=== PATIENT | female | born 1960 | race Caucasian/White ===

== ENCOUNTER → 2016-10-15 | Outpatient (CLI) | payer MEDICARE, OTHER ==
--- NOTE | 2016-10-15 11:17 | US ---
EXAMINATION TYPE: US carotid duplex BILAT DATE OF EXAM: 10/15/2016 10:48 AM COMPARISON: NONE CLINICAL HISTORY: US. Vertigo EXAM MEASUREMENTS: RIGHT: Peak Systolic Velocity (PSV) cm/sec ----- Right CCA: 91.7 ----- Right ICA: 96.8 ----- Right ECA: 147.1 ICA/CCA ratio: 1.1 RIGHT: End Diastole cm/sec ----- Right CCA: 37.4 ----- Right ICA: 38.7 ----- Right ECA: 30.8 LEFT: Peak Systolic Velocity (PSV) cm/sec ----- Left CCA: 85.0 ----- Left ICA: 133.5 ----- Left ECA: 162.9 ICA/CCA ratio: 1.6 LEFT: End Diastole cm/sec ----- Left CCA: 39.6 ----- Left ICA: 52.7 ----- Left ECA: 54.4 VERTEBRALS (direction of flow): Right Vertebral: Antegrade Left Vertebral: Antegrade IMPRESSION: Mild plaque noted bilateral bifurcations. Slightly increased velocities left ICA. Increa sed velocities bilateral ECA Criteria for Assigning % of Stenosis / Diameter reduction (Estimation based on the indirect measurements of the internal carotid artery velocities (ICA PSV). 1. Normal (no stenosis)=ICA PSV < 125 cm/s: ratio < 2.0: ICA EDV<40 cm/s. 2. Less than 50% stenosis=ICA PSV < 125 cm/s: ratio < 2.0: ICA EDV<40 cm/s. 3. 50 to 69% stenosis=ICA PSV of 125 to 230 cm/s: ration 2.0 ? 4.0: ICA EDV 40-100 cm/s. 4. Greater than 70% stenosis to near occlusion= ICA PSV > 230 cm/s: ratio > 4.0: ICA EDV > 100 cm/s. 5. Near occlusion= ICA PSV velocities may be low or undetectable: variable ratio and ICA EDV. 6. Total occlusion=unable to detect flow.
[2016-10-15 11:19] LABS: Basophils # (A) 0.1 k/uL (0-0.2); Basophils % (A) 1 %; CH 29.7; CHCM 32.7; Eosinophils # (A) 0.2 k/uL (0-0.7); Eosinophils % (A) 2 %; HCT 45.5 % (34.0-46.0); HGB 14.5 gm/dL (11.4-16.0); Luc # (Auto) 0.11; Luc % (Auto) 1; Lymphocytes % (A) 23 %; MCH 29.2 pg (25.0-35.0); MCV 91.2 fL (80.0-100.0); Mean Platelet Volume 7.7; Monocytes # (A) 0.4 k/uL (0-1.0); Monocytes % (A) 5 %; Neutrophils # (A) 5.8 k/uL (1.3-7.7); Neutrophils % (A) 67 %; RBC 4.99 m/uL (3.80-5.40); RDW 13.1 % (11.5-15.5); WBC 8.7 k/uL (3.8-10.6); WBC (Perox) 8.67
[2016-10-15 11:41] LABS: ALT 25 U/L (9-52); AST 16 U/L (14-36); Alkaline Phosphatase 71 U/L (38-126); Anion Gap 10 mmol/L; Blood Urea Nitrogen 14 mg/dL (7-17); Calcium 10.3 mg/dL (8.4-10.2); Carbon Dioxide 29 mmol/L (22-30); Chloride 104 mmol/L (98-107); Glucose 101 mg/dL (74-99); HDL Cholesterol 71 mg/dL (40-60); Non-African American GFR(MDRD) >60 (>60 ml/min/1.73 sqM); Sodium 143 mmol/L (137-145); Total Bilirubin 0.9 mg/dL (0.2-1.3); Total Protein 7.1 g/dL (6.3-8.2); Triglycerides 83 mg/dL (<150)
[2016-10-15 11:57] LABS: Cholesterol 466 mg/dL (<200)
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
[2016-10-15 12:25] LABS: Vitamin B12 958 pg/mL (239-931)
[2016-10-15 13:19] LABS: Hepatitis C Virus IgG Index 0.01
[2016-10-15 13:41] LABS: Hepatitis C Virus IgG Ab Negative (Negative)
== END | disposition home or self-care (01) ==
LOC: RADUSWWP 10:13
PROVIDERS: ATTEND Psychiatry & Neurology Neurology
DX: G35 Multiple sclerosis (principal); R90.82 White matter disease, unspecified; G37.9 Demyelinating disease of central nervous system, unspecified; I65.23 Occlusion and stenosis of bilateral carotid arteries
CPT/HCPCS: 86803; 84439; 84481; 80061; 80053; 82607; 84443; 85025; 83090; 82306; 93880; 70460; 36415; Q9967

== ENCOUNTER → 2017-05-09 | Outpatient (CLI) | payer MEDICARE, OTHER ==
--- NOTE | 2017-05-09 10:31 | CT ---
EXAMINATION TYPE: CT brain wo/w con DATE OF EXAM: 05/09/2017 COMPARISON: History of multiple sclerosis with new onset leg weakness. HISTORY: Patient complains of history of MS with new onset left leg weakness. CT DLP: 1566.4 mGycm Automated Exposure Control for Dose Reduction was Utilized. TECHNIQUE: CT scan of the head is performed with IV contrast.,CT scan of the head is performed withou t and with without and with IV Contrast, patient injected with 100 mL of Omnipaque 300. FINDINGS: Noncontrast images show no acute intracranial hemorrhage or midline shift. Focal areas of hypoattenuation are seen within the periventricular and subcortical white matter, specifically radia ting from the periventricular white matter through the hobson radiata and a perpendicular fashion mos t notably within the left frontal lobe. No evidence of abnormal enhancement. The ventricles and sulci are within normal limits in size. Postcontrast images show no suspicious enh ancing intraparenchymal mass. The frontal sinuses are aplastic. The globes are intact and the remaini ng visualized sinuses are clear. Again noted is leftward nasal septal deviation, partially visualized . IMPRESSION: Stable nonenhancing periventricular and deep white matter changes compatible with the pro vided history of multiple sclerosis. MR could be performed for further evaluation of posterior fossa, cervical or brainstem lesions as well as optic neuritis if clinically indicated.
== END | disposition home or self-care (01) ==
LOC: RADCTMAIN 09:29
PROVIDERS: ATTEND Psychiatry & Neurology Neurology
DX: G35 Multiple sclerosis (principal); Z88.0 Allergy status to penicillin; Z88.6 Allergy status to analgesic agent
CPT/HCPCS: 70470; Q9967

== ENCOUNTER → 2017-06-22 | Outpatient (CLI) | payer MEDICARE, OTHER ==
[2017-06-22 11:48] LABS: Basophils # (A) 0.1 k/uL (0-0.2); Basophils % (A) 1 %; CH 29.2; CHCM 32.2; Eosinophils # (A) 0.2 k/uL (0-0.7); Eosinophils % (A) 2 %; HCT 46.3 % (34.0-46.0); HDW 2.11; HGB 15.5 gm/dL (11.4-16.0); Luc # (Auto) 0.13; Luc % (Auto) 2; Lymphocytes # (A) 2.6 k/uL (1.0-4.8); Lymphocytes % (A) 32 %; MCH 30.5 pg (25.0-35.0); MCHC 33.5 g/dL (31.0-37.0); MCV 91.2 fL (80.0-100.0); Mean Platelet Volume 7.2; Monocytes # (A) 0.4 k/uL (0-1.0); Monocytes % (A) 5 %; Neutrophils # (A) 4.8 k/uL (1.3-7.7); Neutrophils % (A) 59 %; RBC 5.07 m/uL (3.80-5.40); RDW 13.2 % (11.5-15.5); WBC 8.1 k/uL (3.8-10.6); WBC (Perox) 8.14
[2017-06-22 12:14] LABS: ALT 30 U/L (9-52); AST 16 U/L (14-36); Alkaline Phosphatase 85 U/L (38-126); Anion Gap 8 mmol/L; Blood Urea Nitrogen 18 mg/dL (7-17); Calcium 10.3 mg/dL (8.4-10.2); Carbon Dioxide 28 mmol/L (22-30); Chloride 105 mmol/L (98-107); Glucose 102 mg/dL (74-99); Non-African American GFR(MDRD) >60 (>60 ml/min/1.73 sqM); Potassium 4.1 mmol/L (3.5-5.1); Sodium 141 mmol/L (137-145); Total Bilirubin 0.8 mg/dL (0.2-1.3); Total Protein 7.1 g/dL (6.3-8.2)
[2017-06-22 12:56] LABS: Vitamin B12 >1000 pg/mL (239-931)
== END | disposition home or self-care (01) ==
LOC: LABWHC1 11:10
PROVIDERS: ATTEND Nurse Practitioner Acute Care
DX: G35 Multiple sclerosis (principal); E55.9 Vitamin D deficiency, unspecified
CPT/HCPCS: 36415; 80053; 82306; 82607; 84439; 84443; 84481; 85025

== ENCOUNTER → 2017-07-25 | Outpatient (CLI) | payer MEDICARE, OTHER ==
[2017-07-25 13:31] LABS: Prothrombin Time 10.3 sec (9.0-12.0)
== END | disposition home or self-care (01) ==
LOC: LABWHC1 12:28
PROVIDERS: ATTEND Nurse Practitioner Acute Care
DX: Z01.812 Encounter for preprocedural laboratory examination (principal)
CPT/HCPCS: 36415; 85610

== ENCOUNTER → 2017-12-01 | Outpatient (CLI) | payer MEDICARE, OTHER ==
--- NOTE | 2017-12-01 13:35 | CT ---
EXAMINATION TYPE: CT lumbar spine wo con DATE OF EXAM: 12/01/2017 COMPARISON: 08/03/2013 HISTORY: Lumbago Unenhanced CT of the lumbar spine was performed. Bone and soft tissue window settings are submitted as well as coronal and sagittal reconstructions. L1-L2: Normal disc space height. No disc herniation protrusion or central stenosis. No facet joint arthropathy. No evidence for foraminal encroachment. L2-L3: Normal disc space height. No disc herniation protrusion or central stenosis. No facet joint arthropathy. No evidence for foraminal encroachment. L3-L4: Mild degenerative disc space narrowing. Circumferential disc bulge with mild effacement ventra l thecal sac. No herniation protrusion or central stenosis. Mild facet joint arthropathy. Foramina ar e patent bilaterally. L4-L5: Mild degenerative disc space narrowing. Broad-based disc bulge with greater focal component pa racentrally and to the left at the level of the neural foramen right cannot exclude a small protrusio n. Mild left foraminal encroachment noted. It is difficult to exclude bilateral lateral recess stenos is. No definite central stenosis at this time. L5-S1: Mild to moderate degenerative disc space narrowing. Moderate Broad-based disc bulge. Mild eff acement ventral thecal sac. Left lateral recess stenosis difficult to exclude. Foramina are patent. No paraspinal masses are identified. Lumbar segments are free if fracture. Stimulator device is note d with its distal tip off the [id number]. Stimulator enters at the L3-4 level. IMPRESSION: 1. Multilevel degenerative disc space narrowing with disc bulging and possible lateral recess stenosi s as outlined above.
== END | disposition home or self-care (01) ==
LOC: RADCTMAIN 12:47
PROVIDERS: ATTEND Psychiatry & Neurology Neurology
DX: M48.07 Spinal stenosis, lumbosacral region (principal); M51.27 Other intervertebral disc displacement, lumbosacral region; M46.86 Other specified inflammatory spondylopathies, lumbar region
CPT/HCPCS: 72131

== ENCOUNTER → 2018-11-07 | Outpatient (CLI) | payer MEDICARE, OTHER ==
[2018-11-07 17:00] LABS: HCT 46.2 % (34.0-46.0); HGB 14.9 gm/dL (11.4-16.0); MCH 28.8 pg (25.0-35.0); MCHC 32.1 g/dL (31.0-37.0); MCV 89.7 fL (80.0-100.0); Mean Platelet Volume 6.9; Platelet Count 290 k/uL (150-450); RBC 5.16 m/uL (3.80-5.40); RDW 14.6 % (11.5-15.5); WBC 9.3 k/uL (3.8-10.6)
[2018-11-07 17:37] LABS: Lymphocytes # (M) 6.42 k/uL (1.0-4.8); Neutrophils # (M) 2.51 k/uL (1.3-7.7); Neutrophils % (M) 27 %
[2018-11-07 17:38] LABS: Eosinophils # (M) 0.28 k/uL (0-0.7); Monocytes # (M) 0.09 k/uL (0-1.0); Nucleated Red Blood Cells 0 /100 WBC (0-0); Total Cells Counted 100
[2018-11-08 00:59] LABS: Albumin 4.6 g/dL (3.80-4.90); Albumin/Globulin Ratio 2.42 (1.60-3.17); Anion Gap 8.9 mmol/L (4.00-12.00); Calcium 9.7 mg/dL (8.7-10.3); Carbon Dioxide 27.1 mmol/L (21.6-31.8); Globulin 1.9 g/dL (1.6-3.3); Potassium 4.6 mmol/L (3.5-5.5); Total Bilirubin 0.6 mg/dL (0.3-1.2); Total Protein 6.5 g/dL (6.2-8.2)
== END | disposition home or self-care (01) ==
LOC: LABWHC1 15:42
PROVIDERS: ATTEND Nurse Practitioner Acute Care
DX: G35 Multiple sclerosis (principal); E55.9 Vitamin D deficiency, unspecified
CPT/HCPCS: 36415; 80053; 82306; 85025

== ENCOUNTER → 2019-08-17 | Outpatient (CLI) | payer MEDICARE, OTHER ==
--- NOTE | 2019-08-17 13:28 | CT ---
EXAMINATION TYPE: CT lumbar spine wo con DATE OF EXAM: 08/17/2019 COMPARISON: 12/01/2017 HISTORY: Low back pain. Left leg weakness x [address] DLP: 527.[address] of the lumbar spine was performed. Bone and soft tissue window settings are submitted as well as coronal and sagittal reconstructions. L1-L2: Normal disc space height. No disc herniation protrusion or central stenosis. No facet joint arthropathy. No evidence for foraminal encroachment. L2-L3: Normal disc space height. No disc herniation protrusion or central stenosis. No facet joint arthropathy. No evidence for foraminal encroachment. L3-L4: Mild degenerative disc space narrowing. Circumferential disc bulge with mild effacement ventra l thecal sac. No herniation protrusion or central stenosis. Mild facet joint arthropathy. Foramina ar e patent bilaterally. L4-L5: Mild disc desiccation noted. Circumferential disc bulge noted greatest posteriorly moderate in degree. Previously noted focal component on the left is not reproduced at this time. There is suspec all bilateral lateral recess stenosis. Mild bilateral foraminal encroachment. L5-S1: Mild degenerative disc space narrowing. Circumferential disc bulge with mild effacement ventra l thecal sac. No herniation protrusion or central stenosis. Mild facet joint arthropathy. Foramina ar e patent bilaterally. No paraspinal masses are identified. Lumbar segments are free if fracture. IMPRESSION: 1. Degenerative disc disease as discussed without significant interval change. Posterior disc bulging greatest at L4-5 where there is bilateral lateral recess stenosis and foraminal encroachment.
[2019-08-17 14:38] LABS: Basophils # (A) 0.1 k/uL (0-0.2); Basophils % (A) 1 %; Eosinophils # (A) 0.4 k/uL (0-0.7); Eosinophils % (A) 4 %; HCT 44.9 % (34.0-46.0); Lymphocytes # (A) 4.5 k/uL (1.0-4.8); Lymphocytes % (A) 42 %; MCH 29.8 pg (25.0-35.0); MCHC 33.4 g/dL (31.0-37.0); MCV 89.4 fL (80.0-100.0); Mean Platelet Volume 6.3; Monocytes # (A) 0.5 k/uL (0-1.0); Monocytes % (A) 5 %; Neutrophils # (A) 4.9 k/uL (1.3-7.7); Neutrophils % (A) 46 %; Platelet Count 273 k/uL (150-450); RBC 5.02 m/uL (3.80-5.40); RDW 14.5 % (11.5-15.5); WBC 10.7 k/uL (3.8-10.6)
[2019-08-17 14:50] LABS: ALT 15 U/L (9-52); AST 17 U/L (14-36); African American GFR (CKD) >90 (>60 ml/min/1.73 sqM); Albumin 4.5 g/dL (3.5-5.0); Alkaline Phosphatase 73 U/L (38-126); Anion Gap 5 mmol/L; Blood Urea Nitrogen 21 mg/dL (7-17); Calcium 9.8 mg/dL (8.4-10.2); Carbon Dioxide 29 mmol/L (22-30); Chloride 108 mmol/L (98-107); Glucose 98 mg/dL (74-99); HDL Cholesterol 76 mg/dL (40-60); Non-African American GFR(CKD) 84 (>60 ml/min/1.73 sqM); Potassium 4.3 mmol/L (3.5-5.1); Sodium 142 mmol/L (137-145); Total Bilirubin 0.6 mg/dL (0.2-1.3); Total Protein 7.2 g/dL (6.3-8.2); Triglycerides 85 mg/dL (<150)
[2019-08-17 14:56] LABS: LDL Cholesterol,Calculated 378 mg/dL (0-99)
[2019-08-17 15:03] LABS: Cholesterol 471 mg/dL (<200)
--- NOTE | 2019-08-18 15:02 | US ---
EXAMINATION TYPE: US venous doppler duplex LE DATE OF EXAM: 08/17/2019 1:40 PM COMPARISON: NONE CLINICAL HISTORY: R20.8 color and temperature sensation change,M54.5. Left leg discoloration x couple weeks, patient on blood thinners SIDE PERFORMED: Bilateral TECHNIQUE: The lower extremity deep venous system is examined utilizing real time linear array sonog mikayla with graded compression, doppler sonography and color-flow sonography. VESSELS IMAGED: External Iliac Vein (EIV) Common Femoral Vein Deep Femoral Vein Greater Saphenous Vein * Femoral Vein Popliteal Vein Small Saphenous Vein * Proximal Calf Veins (* superficial vessels) Grayscale, color doppler, spectral doppler imaging performed of the deep veins of the lower extremit ies. There is normal flow, compressibility, vascular waveforms. Right Leg: Appears negative for DVT Left Leg: Appears negative for DVT IMPRESSION: No sonographic evidence of deep venous thrombosis within either lower extremity.
== END | disposition home or self-care (01) ==
LOC: RADCTMAIN 12:31
PROVIDERS: ATTEND Psychiatry & Neurology Neurology
DX: M48.061 Spinal stenosis, lumbar region without neurogenic claudication (principal); M51.26 Other intervertebral disc displacement, lumbar region; M51.36 Other intervertebral disc degeneration, lumbar region; G35 Multiple sclerosis; E55.9 Vitamin D deficiency, unspecified
CPT/HCPCS: 72131; 80053; 80061; 82306; 82607; 84425; 85025; 93970

== ENCOUNTER → 2019-09-14 | Outpatient (CLI) | payer MEDICARE, OTHER | END | disposition home or self-care (01) | LOC: LABWHC1 14:04 | PROVIDERS: ATTEND Nurse Practitioner Acute Care | DX: Z51.81 Encounter for therapeutic drug level monitoring (principal); Z79.899 Other long term (current) drug therapy | CPT/HCPCS: 36415; 82607; 84207 ==

== ENCOUNTER 2019-10-03 12:32 | Emergency (ER) | payer MEDICARE, OTHER ==
[2019-10-03 12:42] VITALS: TEMP 98.4
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
[2019-10-03 13:47] LABS: Appearance,Urine Cloudy (Clear); Bacteria,Urine Occasional /hpf; Bilirubin,Urine Negative (Negative); Blood,Urine Trace (Negative); Color,Urine Yellow; Glucose,Urine (UA) Negative (Negative); Ketones,Urine Negative (Negative); Leukocyte Esterase,Urine Large (Negative); Nitrite,Urine Positive (Negative); PH, Urine 5.5 (5.0-8.0); Protein,Urine Trace (Negative); RBC,Urine 18 /hpf (0-5); Specific Gravity,Urine 1.014 (1.001-1.035); Squamous Epithelial Cell,Urine 1 /hpf (0-4); Urobilinogen,Urine <2.0 mg/dL (<2.0); WBC,Urine >182 /hpf (0-5)
[2019-10-03] MEDS ORDERED: CEPHALEXIN 500 MG CAP PO STA (14:11)
[2019-10-03] MEDS ORDERED: PHENAZOPYRIDINE 200 MG TAB PO STA (14:13)
[2019-10-03] MEDS ORDERED: IBUPROFEN 800 MG TAB PO STA (14:13)
[2019-10-03] MEDS ORDERED: HYDROmorphone 1 MG/ML 1 ML SYRINGE IM STA (14:23)
[2019-10-03] MEDS ORDERED: ONDANSETRON ODT 4 MG TAB PO STA (15:19)
[2019-10-03 15:26] VITALS: BP 121/60; PULSE 70; RESP 18
== END 2019-10-03 15:25 | disposition home or self-care (01) ==
LOC: EC 12:32
DX: N39.0 Urinary tract infection, site not specified (principal); F17.200 Nicotine dependence, unspecified, uncomplicated; Z79.02 Long term (current) use of antithrombotics/antiplatelets; Z79.899 Other long term (current) drug therapy; Z88.0 Allergy status to penicillin; Z88.6 Allergy status to analgesic agent
CPT/HCPCS: 81001; 87086; 99283; 96372; J1170

== ENCOUNTER 2020-02-01 18:27 | Emergency (ER) | payer MEDICARE, OTHER ==
[2020-02-01 18:39] VITALS: TEMP 100.6
[2020-02-01] MEDS ORDERED: SODIUM CHLORIDE 0.9% 500 ML 500 ML IV STA (19:21)
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
[2020-02-01 20:48] LABS: Basophils # (A) 0.1 k/uL (0-0.2); Basophils % (A) 1 %; Eosinophils # (A) 0.1 k/uL (0-0.7); Eosinophils % (A) 1 %; HCT 41.4 % (34.0-46.0); HGB 13.8 gm/dL (11.4-16.0); Lymphocytes # (A) 2.1 k/uL (1.0-4.8); Lymphocytes % (A) 16 %; MCH 29.9 pg (25.0-35.0); MCHC 33.4 g/dL (31.0-37.0); MCV 89.4 fL (80.0-100.0); Mean Platelet Volume 8.6; Monocytes % (A) 7 %; Neutrophils # (A) 9.6 k/uL (1.3-7.7); Neutrophils % (A) 73 %; Platelet Count 247 k/uL (150-450); RBC 4.63 m/uL (3.80-5.40); RDW 13.9 % (11.5-15.5); WBC 13.2 k/uL (3.8-10.6)
[2020-02-01 20:53] LABS: ALT 17 U/L (4-34); AST 28 U/L (14-36); African American GFR (CKD) >90 (>60 ml/min/1.73 sqM); Albumin 4.1 g/dL (3.5-5.0); Alkaline Phosphatase 64 U/L (38-126); Anion Gap 9 mmol/L; Blood Urea Nitrogen 14 mg/dL (7-17); Calcium 9.4 mg/dL (8.4-10.2); Carbon Dioxide 25 mmol/L (22-30); Chloride 102 mmol/L (98-107); Glucose 128 mg/dL (74-99); Magnesium 1.9 mg/dL (1.6-2.3); Non-African American GFR(CKD) >90 (>60 ml/min/1.73 sqM); Sodium 136 mmol/L (137-145); Total Protein 6.9 g/dL (6.3-8.2)
[2020-02-01 20:59] LABS: Partial Thromboplastin Time 26.1 sec (22.0-30.0); Prothrombin Time 10.5 sec (9.0-12.0)
--- NOTE | 2020-02-01 21:24 | XR ---
EXAMINATION TYPE: XR chest 2V DATE OF EXAM: 02/01/2020 COMPARISON: NONE HISTORY: Weakness chest pain TECHNIQUE: 2 views FINDINGS: Heart is normal. Thoracic aorta shows mild atheromatous change. Lungs are clear of infiltra te. There are chest leads. Costophrenic angles are clear. IMPRESSION: No active cardiopulmonary disease. Normal heart.
[2020-02-01 22:05] LABS: Appearance,Urine Cloudy (Clear); Bacteria,Urine Many /hpf; Bilirubin,Urine Negative (Negative); Blood,Urine Small (Negative); Color,Urine Yellow; Glucose,Urine (UA) Negative (Negative); Ketones,Urine 1+ (Negative); Leukocyte Esterase,Urine Large (Negative); Mucus,Urine Rare /hpf; Nitrite,Urine Positive (Negative); PH, Urine 5.5 (5.0-8.0); Protein,Urine 1+ (Negative); RBC,Urine 4 /hpf (0-5); Specific Gravity,Urine 1.018 (1.001-1.035); Squamous Epithelial Cell,Urine 8 /hpf (0-4); Urobilinogen,Urine <2.0 mg/dL (<2.0); WBC,Urine 114 /hpf (0-5)
[2020-02-01] MEDS ORDERED: cefTRIAXone IN SWFI 1,000 MG/10 ML SYRINGE IVP STA ×2 (22:25→22:26)
[2020-02-01] MEDS: ACETAMINOPHEN TAB 500 MG TAB PO STA ×2 (22:46→22:47)
[2020-02-01 23:38] VITALS: BP 103/86; PULSE 95; RESP 18
== END 2020-02-01 23:30 | disposition home or self-care (01) ==
LOC: EC 18:27
DX: N39.0 Urinary tract infection, site not specified (principal); F17.200 Nicotine dependence, unspecified, uncomplicated; Z79.02 Long term (current) use of antithrombotics/antiplatelets; Z79.899 Other long term (current) drug therapy; Z88.6 Allergy status to analgesic agent; Z88.0 Allergy status to penicillin
CPT/HCPCS: 96365; 96375; 99285; 36415; 93005; 80053; 83605; 83735; 84484; 85025; 85610; 85730; 81001; 87086; 87077; 87186; 87635; 71046; J0696 ×2

== ENCOUNTER → 2020-03-22 | Outpatient (CLI) | payer MEDICARE, OTHER ==
[2020-03-22 15:44] LABS: Basophils # (A) 0.1 k/uL (0-0.2); Basophils % (A) 1 %; Eosinophils # (A) 0.5 k/uL (0-0.7); Eosinophils % (A) 5 %; HCT 44.6 % (34.0-46.0); HGB 14.6 gm/dL (11.4-16.0); Lymphocytes # (A) 4.6 k/uL (1.0-4.8); Lymphocytes % (A) 49 %; MCH 29.7 pg (25.0-35.0); MCHC 32.7 g/dL (31.0-37.0); MCV 90.9 fL (80.0-100.0); Mean Platelet Volume 7.9; Monocytes # (A) 0.5 k/uL (0-1.0); Monocytes % (A) 5 %; Neutrophils # (A) 3.5 k/uL (1.3-7.7); Neutrophils % (A) 37 %; Platelet Count 311 k/uL (150-450); RBC 4.91 m/uL (3.80-5.40); RDW 14.6 % (11.5-15.5); WBC 9.5 k/uL (3.8-10.6)
[2020-03-22 22:41] LABS: African American GFR (CKD) 109.1 (60.0-200.0); Albumin 4.5 g/dL (3.80-4.90); Albumin/Globulin Ratio 2.25 (1.60-3.17); Anion Gap 4.6 mmol/L (4.00-12.00); BUN/Creat Ratio 24.29 Ratio (12.00-20.00); Calcium 10.5 mg/dL (8.7-10.3); Carbon Dioxide 31.4 mmol/L (21.6-31.8); Non-African American GFR(CKD) 94.2 (60.0-200.0); Potassium 4.2 mmol/L (3.5-5.5); Total Bilirubin 0.7 mg/dL (0.3-1.2); Total Protein 6.5 g/dL (6.2-8.2)
== END | disposition home or self-care (01) ==
LOC: LABMAIN 14:43
PROVIDERS: ATTEND Nurse Practitioner Acute Care
DX: G35 Multiple sclerosis (principal); E55.9 Vitamin D deficiency, unspecified; R53.82 Chronic fatigue, unspecified
CPT/HCPCS: 36415; 80053; 82306; 82607; 84207; 85025

== ENCOUNTER → 2020-04-04 | Outpatient (CLI) | payer MEDICARE, OTHER ==
--- NOTE | 2020-04-05 10:51 | CT ---
EXAMINATION TYPE: CT brain wo/w con DATE OF EXAM: 04/04/2020 COMPARISON: 05/09/2017 INDICATION: Hx of MS, dizziness DLP: 2021.3 mGycm, Automated exposure control for dose reduction was used. CONTRAST: 65 mL [id number]-370 CT of the brain is performed utilizing 3 mm thick sections through the posterior fossa and 3 mm thick sections through the remaining calvarium. Study is performed within 24 hours of arrival to the hosp [facility]. No abnormal hyperdensity is present to suggest an acute intracranial hemorrhage. No mass lesion is evident. No acute infarcts are evident. There may be a hypodense area within the right [place]. Series 14 image 19. This is an interval change. Periventricular white matter hypodensity is present findings are similar. Following contrast no suspicious enhancement is evident. Ventricles and sulci are slightly prominent for the patient age. Paranasal sinuses and mastoid air cells within the [id number] are clear. IMPRESSIONS: 1. Atrophy with periventricular white matter changes. Findings can be related to underlying multipl e sclerosis or microvascular ischemic change. 2. White matter change may be within the right brain stem which is an interval change. This does not appear acute however.
--- NOTE | 2020-04-05 11:00 | CT ---
EXAMINATION TYPE: CT angio head neck DATE OF EXAM: 04/04/2020 HISTORY: Hx of MS, dizziness COMPARISON: None CT DLP: 253 mGycm. Automated Exposure Control for Dose Reduction was Utilized. TECHNIQUE: CTA scan of the neck is performed with IV Contrast, patient injected with 65 mL of Isovue 370, axial images are obtained, coronal and sagittal reformatted images are reviewed. Three-D recons tructed images are created on an independent workstation and reviewed. Source images are reviewed. FINDINGS: Carotid/Vascular Structures: Three-D reconstructed images the great vessels are performed. There is p oor visualization of the great vessels within the thoracic inlet. Atheromatous plaquing is at the car otid bifurcation. Diameter at the plaque is 2.32 mm versus 3.11 mm the proximal internal carotid venancio ry on the left. On the right atheromatous plaque is present with a 3.76 mm diameter. This is greater than the 3.38 proximal internal carotid artery measurement. Vertebral arteries are codominant. Cervical of Rodriguez: Vertebral basilar system appears normal. Posterior cerebral vasculature is unrema rkable. Internal carotid arteries bifurcate normally into A1 and M1 segments. A2 segments are normal. The anterior communicating artery is absent. Left Posterior communicating artery is patent. Right po sterior communicating artery is absent. Other: Limited CT sections are obtained through the lung apices. Multiple emphysematous blebs and bul la are present. IMPRESSION: 1. No flow-limiting stenosis bilateral carotid bifurcations. Atheromatous plaquing is present 2. Normal augustine of Rodriguez 3. COPD.
== END | disposition home or self-care (01) ==
LOC: RADCTMAIN 18:19
PROVIDERS: ATTEND Nurse Practitioner Acute Care
DX: G31.89 Other specified degenerative diseases of nervous system (principal); R90.82 White matter disease, unspecified; J44.9 Chronic obstructive pulmonary disease, unspecified; I70.90 Unspecified atherosclerosis; R42 Dizziness and giddiness
CPT/HCPCS: 70496; 70470; 70498; Q9967

== ENCOUNTER → 2020-04-24 | Outpatient (CLI) | payer MEDICARE, OTHER ==
[2020-04-25 00:38] LABS: Hepatitis B Core IgM Non-Reactive (Non-Reactive); Hepatitis B Surface AB- Quant 3.5 mIU/mL; Hepatitis B Surface Antibody Non-Reactive (Non-Reactive); Hepatitis B Surface Antigen Non-Reactive (Non-Reactive)
== END | disposition home or self-care (01) ==
LOC: LABWHC1 13:26
PROVIDERS: ATTEND Nurse Practitioner Acute Care
DX: G35 Multiple sclerosis (principal); Z51.81 Encounter for therapeutic drug level monitoring; Z79.899 Other long term (current) drug therapy
CPT/HCPCS: 36415; 86704; 86705; 86706; 86787; 87077; 87086; 87186; 87340

== ENCOUNTER → 2021-04-09 | Outpatient (CLI) | payer MEDICARE, OTHER ==
--- NOTE | 2021-04-09 20:46 | CT ---
EXAMINATION TYPE: CT brain wo/w con DATE OF EXAM: 04/09/2021 COMPARISON: Prior CT brain April 04, 2020 HISTORY: MS CT DLP: 3356 combined with c-spine mGycm Automated exposure control for dose reduction was used. CONTRAST: CT scan of the head is performed without and with IV Contrast, patient injected with 100 mL of Isovue 300. FINDINGS: Noncontrast images show no acute intracranial hemorrhage or midline shift. Mild to moderate ventricu lar and sulcal prominence are redemonstrated. Moderate to severe scattered and confluent areas of T2 hyperintensity throughout the white matter are again seen. No significant change from prior. Postcont rast images show no suspicious enhancing intraparenchymal mass. The globes are intact and the visuali zed sinuses are clear. IMPRESSION: Mild to moderate diffuse cerebral atrophy and moderate to advanced nonspecific white jennifer er changes. No significant change from prior study. No enhancing lesions identified.
--- NOTE | 2021-04-09 20:51 | CT ---
EXAMINATION TYPE: CT cervical spine wo/w con DATE OF EXAM: 04/09/2021 COMPARISON: CT neck November 20, 2014 HISTORY: MS CT DLP: 3356 combined with brain mGycm. Automated Exposure Control for Dose Reduction was Utilized. TECHNIQUE: CT scan of the cervical spine is obtained without and with IV contrast, axial images are obtained, sagittal and coronal reformatted images are also reviewed. Patient injected with 100 cc Omn ipaque 300. FINDINGS: Cervical spine is visualized in its entirety from C1 through upper thoracic levels, persist ent grade 1 retrolisthesis C4 on C5. Persistent moderate disc space narrowing C4-C5 level with mild t o moderate anterior and posterior spurring. Vertebral body heights are maintained. Dextroconvex scoli otic curvature centered upper thoracic spine on current study. Axial images show right paracentral spur disc complex effacing the anterior thecal sac at C4-C5 level with mild to moderate left-sided neural foraminal narrowing due to marginal spurring. Axial images at C5-C6 level show left paracentral disc protrusion effacing the anterior thecal sac on image 40. Spinal cord is normal in caliber without enhancing lesion clearly seen. Thyroid gland appears within normal limits. Mild emphysematous change and visualized upper lungs. Mil d to moderate peripheral plaque right carotid bulb with more severe plaque at left carotid bulb but n o greater than 50% stenosis identified. Nasal septum deviated to left of midline. IMPRESSION: Multilevel degenerative changes greatest at C4-C5 and C5-C6 levels redemonstrated without significant change from prior. No enhancing cervical spinal cord lesions on CT.
== END | disposition home or self-care (01) ==
LOC: RADCTMAIN 17:53
PROVIDERS: ATTEND Nurse Practitioner Acute Care
DX: G31.9 Degenerative disease of nervous system, unspecified (principal); M50.222 Other cervical disc displacement at C5-C6 level; M99.71 Connective tissue and disc stenosis of intervertebral foramina of cervical region
CPT/HCPCS: 72127; 70470; Q9967

== ENCOUNTER → 2021-05-18 | Outpatient (CLI) | payer MEDICARE, OTHER ==
[2021-05-18 19:04] LABS: Basophils # (A) 0.05 X 10*3/uL (0.00-0.10); Basophils % (A) 0.6 %; Eosinophils # (A) 0.35 X 10*3/uL (0.04-0.35); Eosinophils % (A) 4.5 %; HCT 45.1 % (37.2-46.3); Lymphocytes # (A) 2.64 X 10*3/uL (0.90-5.00); Lymphocytes % (A) 34.1 %; MCV 93.4 fL (80.0-97.0); Mean Platelet Volume 11.3 fL (9.5-12.2); Monocytes # (A) 0.51 X 10*3/uL (0.20-1.00); Monocytes % (A) 6.6 %; Neutrophils # (A) 4.17 X 10*3/uL (1.80-7.70); Neutrophils % (A) 53.9 %; Platelet Count 321 X 10*3/uL (140-440); RBC 4.83 X 10*6/uL (4.10-5.20); RDW 13.2 % (11.5-14.5); WBC 7.74 X 10*3/uL (4.50-10.00)
[2021-05-18 19:42] LABS: African American GFR (CKD) 91.6 (60.0-200.0); Albumin 4.6 g/dL (3.80-4.90); Albumin/Globulin Ratio 2.09 (1.60-3.17); Anion Gap 7.3 mmol/L (4.00-12.00); BUN/Creat Ratio 23.75 Ratio (12.00-20.00); Calcium 9.8 mg/dL (8.7-10.3); Carbon Dioxide 29.7 mmol/L (21.6-31.8); Globulin 2.2 g/dL (1.6-3.3); Potassium 3.8 mmol/L (3.5-5.5); Total Bilirubin 0.7 mg/dL (0.3-1.2); Total Protein 6.8 g/dL (6.2-8.2)
== END | disposition home or self-care (01) ==
LOC: LABWHC1 15:15
PROVIDERS: ATTEND Nurse Practitioner Acute Care
DX: E55.9 Vitamin D deficiency, unspecified (principal); G35 Multiple sclerosis
CPT/HCPCS: 36415; 80053; 82306; 82607; 84207; 85025

== ENCOUNTER → 2022-01-04 | Outpatient (CLI) | payer MEDICARE, OTHER ==
[2022-01-04 15:14] LABS: Basophils # (A) 0.1 k/uL (0-0.2); Basophils % (A) 1 %; Eosinophils # (A) 0.3 k/uL (0-0.7); Eosinophils % (A) 3 %; HCT 47.6 % (34.0-46.0); HGB 15.6 gm/dL (11.4-16.0); Lymphocytes # (A) 2.5 k/uL (1.0-4.8); Lymphocytes % (A) 31 %; MCH 30.2 pg (25.0-35.0); MCHC 32.7 g/dL (31.0-37.0); MCV 92.2 fL (80.0-100.0); Mean Platelet Volume 7.5; Monocytes # (A) 0.5 k/uL (0-1.0); Monocytes % (A) 6 %; Neutrophils # (A) 4.8 k/uL (1.3-7.7); Neutrophils % (A) 58 %; Platelet Count 342 k/uL (150-450); RBC 5.16 m/uL (3.80-5.40); RDW 13.7 % (11.5-15.5); WBC 8.3 k/uL (3.8-10.6)
[2022-01-04 15:20] LABS: ALT 13 U/L (4-34); AST 19 U/L (14-36); African American GFR (CKD) >90 (>60 ml/min/1.73 sqM); Albumin 4.3 g/dL (3.5-5.0); Alkaline Phosphatase 78 U/L (38-126); Anion Gap 5 mmol/L; Blood Urea Nitrogen 11 mg/dL (7-17); Calcium 9.6 mg/dL (8.4-10.2); Carbon Dioxide 31 mmol/L (22-30); Chloride 104 mmol/L (98-107); Creatine Kinase 46 U/L (30-135); Glucose 107 mg/dL (74-99); Non-African American GFR(CKD) 88 (>60 ml/min/1.73 sqM); Potassium 4.8 mmol/L (3.5-5.1); Sodium 140 mmol/L (137-145); Total Bilirubin 1.1 mg/dL (0.2-1.3); Total Protein 7.2 g/dL (6.3-8.2)
--- NOTE | 2022-01-04 16:16 | BD ---
EXAMINATION TYPE: Axial Bone Density DATE OF EXAM: 01/04/2022 COMPARISON: NONE CLINICAL HISTORY: 61 years year old Female. ICD-10 CODE: M89.9 Disorder of bone PT IS NOT AMBULATORY DUE TO MS. UNABLE TO GET HEIGHT AND WEIGHT. PT JUST ESTIMATED. Height: 64 IN Weight: 160 LBS FRAX RISK QUESTIONS: Secondary Osteoporosis: 3. Menopause before 45: AGE 49 RISK FACTORS HISTORY OF: Active: NO Postmenopausal woman: AGE 49 Lost more than 2 inches in height since high school: UNSURE MEDICATIONS: Additional Medications: CALCIUM, VIT D, PLAVIX, VIT E, VIT C, MS MEDS, EXAM MEASUREMENTS: Bone mineral densitometry was performed using the Spectropath System. Bone mineral density as measured about the Lumbar spine is: ----- L1-L4(G/cm2): 0.853 T Score Values are as follows: ----- L1: -2.9 ----- L2: -3.2 ----- L3: -2.2 ----- L4: -2.9 ----- L1-L4: -2.7 Bone mineral density BASELINE Bone mineral density about the R hip (g/cm2): 0.596 Bone mineral density about the L hip (g/cm2): 0.413 T Score values are as follows: -----R Neck: -3.2 -----L Neck: -4.5 -----R Total: -3.1 -----L Total: -4.2 Bone mineral density BASELINE FRAX%s: The graph provided illustrates a 34.7 chance for a major osteoporotic fx and a 21.0 chance fo r the hips probability for fx in 10 years time. IMPRESSION: Osteoporosis (T Score less than -2.5). There is increased fracture risk and therapy is usually indicated based on age. Re-Screen 1-2 years. NOTE: T-SCORE=SD OF THE YOUNG ADULT MEAN.
[2022-01-04 23:44] LABS: % Iron Saturation 18.54 (12.00-45.00); Chol/HDL Ratio 5.91 Ratio; Iron 61 ug/dL (50-170); LDL Cholesterol,Calculated 336.4 mg/dL (0.0-131.0); Total Iron Binding Capacity 329 ug/dL (228-460); VLDL Calculation 15.86 mg/dL (5.00-40.00)
== END | disposition home or self-care (01) ==
LOC: RADBDWWP 13:58
PROVIDERS: ATTEND Family Medicine
DX: M81.0 Age-related osteoporosis without current pathological fracture (principal); E78.89 Other lipoprotein metabolism disorders; G35 Multiple sclerosis; N31.9 Neuromuscular dysfunction of bladder, unspecified; E53.8 Deficiency of other specified B group vitamins; Z78.0 Asymptomatic menopausal state
CPT/HCPCS: 77080; 80053; 80061; 82306; 82550; 82607; 83036; 83540; 83550; 83880; 84443; 85025

== ENCOUNTER → 2022-01-18 | Outpatient (CLI) | payer MEDICARE, OTHER ==
--- NOTE | 2022-01-19 14:46 | MM ---
Reason for exam: screening (asymptomatic). Last mammogram was performed 15 years and 11 months ago. History: Patient is postmenopausal. Physical Findings: A clinical breast exam by your physician is recommended on an annual basis and results should be correlated with mammographic findings. MG 3D Screening Mammo W/Cad Bilateral CC and MLO view(s) were taken. No prior studies available for comparison. There are scattered fibroglandular densities. No significant changes when compared with prior studies. ASSESSMENT: Benign, BI-RAD 2 RECOMMENDATION: Routine screening mammogram of both breasts in 1 year.
== END | disposition home or self-care (01) ==
LOC: RADMAMWWP 14:11
PROVIDERS: ATTEND Family Medicine
DX: Z12.31 Encounter for screening mammogram for malignant neoplasm of breast (principal); Z78.0 Asymptomatic menopausal state
CPT/HCPCS: 77063; 77067

== ENCOUNTER → 2022-03-18 | Outpatient (CLI) | payer MEDICARE, OTHER ==
[~2022-03-18] MED LIST: DENOSUMAB 60 MG/ML 1 ML SYRINGE SQ NR
[2022-03-18 13:03] VITALS: BP 138/82; PULSE 80; RESP 16; TEMP 98
== END ==
LOC: PROCWHC3 12:48
PROVIDERS: ATTEND Family Medicine
DX: M81.0 Age-related osteoporosis without current pathological fracture (principal); Z88.0 Allergy status to penicillin; Z88.6 Allergy status to analgesic agent; F17.200 Nicotine dependence, unspecified, uncomplicated
CPT/HCPCS: 96372; J0897

== ENCOUNTER → 2022-04-20 | Outpatient (CLI) | payer MEDICARE, OTHER ==
--- NOTE | 2022-04-21 07:24 | CT ---
EXAMINATION TYPE: CT brain wo/w con DATE OF EXAM: 04/20/2022 COMPARISON: CT brain 04/09/2021 HISTORY: Multiple sclerosis F/U CT DLP: 2456 mGycm Automated exposure control for dose reduction was used. CONTRAST: CT scan of the head is performed with IV Contrast, patient injected with 70 mL of Isovue 300. FINDINGS: Cerebral vascular calcifications are present. There is cortical atrophy. White matter demye lination changes are again seen. There is no abnormal enhancing mass, plaque or midline shift identified. The ventricles and sulci ar e within normal limits in size. The globes are intact and the visualized sinuses are clear. IMPRESSION: Findings consistent with patient's history of multiple sclerosis.
--- NOTE | 2022-04-21 07:41 | CT ---
CT thoracic and cervical spine with and without contrast HISTORY: Multiple sclerosis Helical acquisition obtained through cervical and thoracic spine pre and post administration of intra venous contrast, patient received 70 cc Isovue-300 IV. Automated exposure control for dose reduction, DLP 5466.[address] cervical spine 04/09/[address] with or without contrast: There is spondylosis at C4-5, C5-6 with associated loss o f disc height similar to prior exam. There is no significant spinal stenosis. No abnormal enhancement following contrast administration. Multilevel facet arthropathy changes are present. No sizable disc herniation. Cervical vertebral bodies are intact. Mild foraminal encroachment present at C4-5 bilate rally, and on the left at C5-6 due to uncovertebral joint hypertrophy. Thoracic spine CT with or without contrast: Emphysematous changes are noted and are extensive within the lungs. Thoracic cord stimulator is present posterior laterally at the level of the approximately T8-9 disc space. The lead courses more laterally and courses inferiorly to its entry point in the lum bar spine but shows a central position at approximately L3 level near its access point. Superior endp late at T1 shows mild compression and is stable. No evident foraminal encroachment. There are some fa cet arthropathy changes especially in the lower thoracic spine There is multilevel spondylosis. Spinal curvature is noted. No evident spinal stenosis. No sizable di sc herniation. No abnormal enhancement following contrast administration. Coronary artery calcificati ons are extensive and there is calcification at the level of the root of the aorta Atheromatous changes are noted incidentally within the aorta. IMPRESSION: Degenerative disc disease as described, spinal curvature, post instrumentation changes. N o abnormal enhancement evident within the spinal canal. Emphysema and coronary artery disease.
== END | disposition home or self-care (01) ==
LOC: RADCTMAIN 17:53
PROVIDERS: ATTEND Psychiatry & Neurology Neurology
DX: G35 Multiple sclerosis (principal); M50.322 Other cervical disc degeneration at C5-C6 level; I25.10 Atherosclerotic heart disease of native coronary artery without angina pectoris; J43.9 Emphysema, unspecified
CPT/HCPCS: 72130; 72127; 70470; Q9967

== ENCOUNTER → 2022-09-20 | Outpatient (CLI) | payer MEDICARE, OTHER ==
[2022-09-20 13:01] VITALS: BP 146/86; PULSE 82; RESP 16; TEMP 98
== END ==
LOC: PROCWHC3 12:50
PROVIDERS: ATTEND Family Medicine
DX: M81.0 Age-related osteoporosis without current pathological fracture (principal); Z88.0 Allergy status to penicillin; Z88.6 Allergy status to analgesic agent; F17.200 Nicotine dependence, unspecified, uncomplicated
CPT/HCPCS: 96372; J0897

== ENCOUNTER → 2023-09-09 | Outpatient (CLI) | payer MEDICARE, OTHER | END | disposition home or self-care (01) | LOC: LABWHC1 16:29 | PROVIDERS: ATTEND Family Medicine | DX: Z53.9 Procedure and treatment not carried out, unspecified reason (principal) ==

== ENCOUNTER → 2023-09-27 | Outpatient (CLI) | payer MEDICARE, OTHER ==
--- NOTE | 2023-09-27 18:52 | US ---
EXAMINATION TYPE: US arterial LE multi level DATE OF EXAM: 09/27/2023 3:16 PM CLINICAL INDICATION: Female, 63 years old with history of I73.9 VASC DISEASE; Numbness BL LE; Rest pa in LLE. Hx MS History of: Smoker: No Hypertension: No Diabetic: No Hyperlipidemia: Yes TIA/CVA: No Previous Vascular Surgery: No CAD: No KS: No Vascular Ulcers: Right Claudication: No; Patient non ambulatory Gangrene: No Doppler Waveforms: Right: Monophasic Left: Monophasic Pulse Volume Recording: NA Pressure Gradients: NA Right Brachial Pressure: 159 Left Brachial Pressure: 152 Ankle-Brachial Indices: Right: 0.62 Left: 0.62 Toe Brachial Indices: Right: 0.18 Left: 0.30 ? Inaccurate low thigh values - patients legs spasms during doppler. IMPRESSION: Severe bilateral peripheral vascular disease by ankle brachial and toe brachial indices.
== END | disposition home or self-care (01) ==
LOC: RADUSWWP 14:12
PROVIDERS: ATTEND Family Medicine
DX: I73.9 Peripheral vascular disease, unspecified (principal)
CPT/HCPCS: 93923

== ENCOUNTER → 2023-10-18 | Outpatient (CLI) | payer MEDICARE, OTHER ==
[2023-10-18 13:57] LABS: African American GFR (CKD) 87 (>60 ml/min/1.73 sqM); Blood Urea Nitrogen 14 mg/dL (7-17); Non-African American GFR(CKD) 75 (>60 ml/min/1.73 sqM)
--- NOTE | 2023-10-18 15:50 | CT ---
EXAMINATION TYPE: CT angio abd aorta w/Runoff DATE OF EXAM: 10/18/2023 2:46 PM COMPARISON: None HISTORY: discoloration of bilateral feet. hx of aneurysm CT DLP: 3741 mGycm Automated exposure control for dose reduction was used. TECHNIQUE: Performed with IV Contrast, patient injected with 100ml mL of Isovue 300. . FINDINGS: ABDOMEN AND PELVIS: Underlying emphysematous changes at the lung bases. There is a linear area of scarring or atelectasis . There is metallic foreign body adjacent to liver on the right and within the right soft tissues. Note is made there appears to be a catheter partially included in the subcutaneous posteriorly of the low er lumbar spine on axial image 113. There is a stimulator device in the subcutaneous tissues. Bowel gas pattern is nonspecific with no obstruction. Liver is low in attenuation correlate for hepat ic steatosis. Small hiatal hernia. Mild thickening to the adrenal glands can be associated with benig n hyperplasia. Kidneys function symmetrically. Pancreas has a normal appearance. Numerous mild promin ence of the pancreatic duct at the level of the pancreatic head measuring 6 mm. A bladder distended b ut no gallstones. There is bilateral knee arthropathy. Multilevel degenerative changes spine. AORTA\ILIAC ARTERIES: There is no evidence of aneurysm. There is moderate atherosclerotic disease. There is atherosclerotic plaque at the origin of the LORENAZ, SMA and celiac trunk. Origin atheroscleroti c plaque bilateral renal artery with significant disease suspected on the left. There is extensive atherosclerotic changes at the level of the aortic bifurcation and proximal common iliac artery with a significant greater than 80% stenosis near the origin of the left common iliac a rtery approximately 70% stenosis near the proximal right common iliac artery. There is diffuse calcified plaque throughout the course of the bilateral common iliac arteries with m ultifocal disease. There is an greater than 80% segmental stenosis throughout the course of the right common iliac arter y. Additional localized stenosis involving the distal left common iliac artery measuring greater than 80 % just proximal to the origin of the MANAGEMENT NURSE RN. The internal iliac arteries are calcified with moderate to severe atherosclerotic changes. There is extensive atherosclerotic plaque throughout the course of the right external iliac artery wi th a short segmental occlusion or critical stenosis proximally. Left external iliac artery demonstrates a severe stenosis near its origin measuring greater than 70%. Diffuse [id number]-fguxshik disease seen. RIGHT LOWER EXTREMITY: There is extensive calcified plaque involving the common femoral and deep femoral arteries. 50-60% st enosis. There is lack of enhancement in the proximal right SFA suggestive of segmental occlusion with reconst itution through a multifocal severely diseased SFA with the definitive enhancement seen at the level of the distal thigh at the junction of the popliteal artery. The popliteal artery demonstrates patency with eccentric atherosclerotic disease measuring approximat adarsh 60-70%. There is a large calcified plaque involving the tibial peroneal trunk with significant stenosis or sh ort segmental occlusion. There is diseased origin of the left posterior tibial artery with the artery seen to be contiguous to the level of the foot filling the calcaneal branches. Anterior tibial and p eroneal artery are not seen to enhance. LEFT LOWER EXTREMITY: There is extensive plaque involving the left MANAGEMENT NURSE RN with approximately 80% stenosi s of the proximal left MANAGEMENT NURSE RN and deep femoral artery. There is a proximal enhancement of the SFA. No si gnificant enhancement is seen throughout the course of the left SFA suspect long segmental occlusion. There is a portions of the very distal margin of the SFA and popliteal artery with enhance. Assessmen t of the infrapopliteal vasculature is limited with diminutive appearing trifurcation vessels. Suspec t a severe stenosis of the tibioperoneal trunk is secondary a large calcified plaque. The anterior ti bial artery appears to occlude proximally. Peroneal and posterior tibial arteries are markedly diminu tive with the peroneal seen to the distal calf and the posterior tibial artery seen into the foot. There is multifocal significant calcifications throughout the course of the right SFA with multifocal severe stenosis suspected. There is reduced enhancement involving the right common femoral artery. IMPRESSION: Severe iliofemoral and infrapopliteal bilateral vascular occlusive disease. 1. Severe atherosclerotic change aortic bifurcation with significant radial than 80% bilateral common iliac artery stenoses as discussed above. 2. Bilateral severe external iliac segmental stenoses greater on the right measuring greater than 70% . 3. Bilateral MANAGEMENT NURSE RN significant atherosclerotic calcified plaque. 4. Bilateral diffuse severe SFA disease with bilateral long segmental occlusions reconstituted near t he level of the bilateral distal SFA\popliteal artery. 5. Diffuse infrapopliteal atherosclerotic disease with single vessel runoff on the right via the post erior tibial artery. There is two-vessel runoff on the left via the posterior tibial and peroneal art júnior. Note is made there appears to be severe atherosclerotic plaque and stenosis of the bilateral tib ial peroneal trunk.
== END | disposition home or self-care (01) ==
LOC: RADCTMAIN 13:21
PROVIDERS: ATTEND Surgery Vascular Surgery
DX: I70.203 Unspecified atherosclerosis of native arteries of extremities, bilateral legs (principal); I77.1 Stricture of artery
CPT/HCPCS: 82565; 84520; 75635; 36415; Q9967

== ENCOUNTER → 2023-11-23 | Outpatient (CLI) | payer MEDICARE, OTHER ==
--- NOTE | 2023-11-23 14:47 | CT ---
EXAMINATION TYPE: CT brain wo con, CT angio head neck DATE OF EXAM: 11/23/2023 COMPARISON: None available. HISTORY: Weakness. CT DLP: 1144.7 (accession [id number]), 389.3 (accession [id number]) mGycm Automated exposure control for dose reduction was used. FINDINGS: CT head without contrast: There is no acute intracranial hemorrhage, mass, mass effect, midline shift, extra-axial fluid collec tion or hydrocephalus. Attenuation of the periventricular, subcortical and deep white matter which likely relates to chronic ischemic small vessel change. The romero-white distinction is otherwise intact without evidence of an acute major vessel infarct. The visualized paranasal sinuses and mastoid air cells are clear. CT angiography of the head and neck: There are no enhancing lesions seen throughout the brain. There are no vascular aneurysms or significant areas of stenosis identified. The alignment of the vertebral bodies is unremarkable with some scattered minimal degenerative change s. Moderate emphysematous changes are seen at the visualized lung bases in a centrilobular distribution. IMPRESSION: 1. CHRONIC ISCHEMIC SMALL VESSEL CHANGE WITHIN THE BRAIN. 2. NO SIGNIFICANT VASCULAR ABNORMALITIES IDENTIFIED. 3. EMPHYSEMA.
== END | disposition home or self-care (01) ==
LOC: RADCTMAIN 12:56
PROVIDERS: ATTEND Psychiatry & Neurology Neurology
DX: G35 Multiple sclerosis (principal); R42 Dizziness and giddiness; R41.3 Other amnesia; R20.8 Other disturbances of skin sensation; I67.82 Cerebral ischemia; J43.9 Emphysema, unspecified
CPT/HCPCS: 70496; 70450; 70498; Q9967

== ENCOUNTER → 2024-06-07 | Outpatient (CLI) | payer MEDICARE ==
--- NOTE | 2024-06-10 11:30 | MM ---
Reason for Exam: Screening (asymptomatic). Last mammogram was performed 2 year(s) and 5 month(s) ago. Patient History: Menarche at age 9. First Full-Term at age 20. Postmenopausal. Risk Values: Lorraine 5 year model risk: 1.6%. NCI Lifetime model risk: 6.2%. Prior Study Comparison: 01/29/2005 Bilateral Screening Mammogram, [facility]. 02/23/2006 Bilateral Screening Mammogram, [facility]. 01/18/2022 Bilateral Screening Mammogram, [facility]. Tissue Density: There are scattered areas of fibroglandular density. Findings: Analyzed By CAD. Right breast: There is no suspicious group of microcalcifications or new suspicious mass. Left breast: There is no suspicious group of microcalcifications or new suspicious mass. Overall Assessment: Negative, BI-RAD 1 Management: Screening Mammogram of both breasts in [address] [facility] will attempt to contact patient to return for supplemental views and ultrasound if indicated. Patient should continue monthly self-breast exams. A clinical breast exam by your physician is recommended on an annual basis. This exam should not preclude additional follow-up of suspicious palpable abnormalities. Note on Lorraine scores and lifetime risk: 1. A Lorraine score greater than 3% is considered moderate risk. If this is the case, consider specialist referral to assess eligibility for a risk reducing agent. 2. If overall lifetime risk for the development of breast cancer is 20% or higher, the patient may qualify for future screening with alternating mammogram and breast MRI. Electronically signed and approved by: Darrell Sierra DO
== END | disposition home or self-care (01) ==
LOC: RADMAMWWP 14:40
PROVIDERS: ATTEND Family Medicine
DX: Z12.31 Encounter for screening mammogram for malignant neoplasm of breast
CPT/HCPCS: 77063; 77067

== ENCOUNTER → 2024-06-27 | Outpatient (CLI) | payer MEDICARE ==
[2024-06-27 13:41] LABS: African American GFR (CKD) 89 (>60 ml/min/1.73 sqM); Blood Urea Nitrogen 21 mg/dL (7-17); Non-African American GFR(CKD) 77 (>60 ml/min/1.73 sqM)
--- NOTE | 2024-06-27 17:54 | CT ---
EXAMINATION TYPE: CT brain wo/w con CT DLP: 2239.7 mGycm, Automated exposure control for dose reduction was used. DATE OF EXAM: 06/27/2024 3:23 PM COMPARISON: CT brain 11/23/2023. CLINICAL INDICATION:Female, 64 years old with history of G35 MULTIPLE SCLEROSIS; PHH, Multiple sclero sis. TECHNIQUE: Axial CT images of the brain were obtained followed by contrast enhanced axial images of t he brain with 100 cc of ISO-view 370 IV contrast. One or more CT dose reduction strategies were utili zed during this examination. Coronal and sagittal reformats reviewed. FINDINGS: Extra-axial spaces: No abnormal extra-axial fluid collections. Ventricular system: Within normal limits Cerebral parenchyma: Mild cerebral volume loss. No acute intraparenchymal hemorrhage or mass effect. The romero-white junction is well differentiated. Scattered and confluent symmetric hypoattenuating ar eas are seen within the periventricular and subcortical white matter. No abnormal enhancement is seen after the administration of intravenous contrast. Cerebellum: Unremarkable. Mass effect: No evidence of midline shift. Intracranial vasculature: Atherosclerotic calcifications of the intracranial vessels. Soft tissues: Normal. Calvarium/osseous structures: No depressed skull fracture. Paranasal sinuses and mastoid air cells: Clear. Visualized orbits: Orbital contents are intact. IMPRESSION: 1. No acute intracranial process. 2. Stable nonspecific moderate to advanced white matter changes. No significant change from prior mary dy. No enhancing lesions identified. [facility], , 06/27/2024 5:51 PM
--- NOTE | 2024-06-27 21:23 | CT ---
EXAMINATION TYPE: CT thoracic spine wo/w con CT DLP: 3670.3 mGycm, Automated exposure control for dose reduction was used. DATE OF EXAM: 06/27/2024 3:23 PM COMPARISON: CT thoracic spine 04/20/2022. CLINICAL INDICATION:Female, 64 years old with history of G35 MULTIPLE SCLEROSIS; PHH, Multiple sclero sis. TECHNIQUE: Axial images of the thoracic spine were obtained before and after the uneventful administr ation of 100 mL of Isovue-370 intravenously. Coronal and sagittal reformats were performed. 3-D refor mats of the bones were created on a separate workstation and submitted for review. FINDINGS: Redemonstration of superior endplate T1 compression deformity with 5% height loss. No retro pulsion. Additional central compression deformity within the T6 vertebral body with approximately 5% height loss. No retropulsion. New central compression deformity versus Schmorl's node involving super ior endplate of the T8 vertebral body. Sclerosis identified. Approximately 20% height loss centrally. No retropulsion. New anterior wedge compression deformity of the T11 vertebral body with approximate ly 20% height loss. There is sclerosis identified without significant retropulsion. No abnormal contr ast enhancement identified. Levocurvature of the thoracic spine. No spondylolisthesis. Vacuum disc disease at T7-T8 and T10-T11. No neural foraminal stenosis identified. No definitive evidence of disc herniation. Right paracentral disc protrusion suggested at T7-T8 with mild effacement of the anterior lateral right thecal sac. Br oad-based disc bulge at T10-T11 with at least mild central canal stenosis. Other central canal stenos is identified. Please refer to CT cervical spine of same day for findings. Spinal stimulator lead identified terminating at the T8 vertebral level. It is in stable position fro m prior exam. Atherosclerotic calcifications visualized aorta and its branches. Centrilobular emphysematous changes in the visualized lungs. IMPRESSION: 1. New age-indeterminate anterior wedge compression deformity of the T11 vertebral body is new from prior CT 2021. Additional new central compression deformity versus Schmorl's node involving the super ior endplate of the T6 and T8 vertebral bodies from prior CT. Correlate with point tenderness. No abn ormal contrast enhancement. 2. Mild multilevel degenerative disease as described above. 3. COPD changes. [facility], , 06/27/2024 9:21 PM
--- NOTE | 2024-06-27 21:31 | CT ---
EXAMINATION TYPE: CT cervical spine wo/w con DATE OF EXAM: 06/27/2024 COMPARISON: CT cervical spine 04/20/2022 HISTORY: Multiple sclerosis. CT DLP: 1591.9 mGycm. Automated Exposure Control for Dose Reduction was Utilized. TECHNIQUE: CT scan of the cervical spine is obtained before and after the uneventful administration of 100 mL of Isovue-300 intravenously. Sagittal and coronal reformatted images are also reviewed. FINDINGS: Fracture: None. Osseous structures: Multilevel degenerative disc disease changes with endplate spurring and disc oste ophyte complex's. Vertebral alignment: Within normal limits. Spinal canal/Neural Foramina: Disc osteophyte complexes at C4-C5 and C5-C6 with at least mild spinal canal stenosis. Multilevel facet arthropathy. Mild left neural foraminal narrowing at C4-C5. Severe l eft neural foraminal narrowing at C5-C6. Please refer to CT thoracic spine of the same day for findin gs. No abnormal contrast enhancement. Neck soft tissues: Prevertebral soft tissues are within normal limits. Other: The airway is patent. Centrilobular emphysematous changes. Bilateral carotid bulb calcificatio ns with left greater than right. IMPRESSION: 1. No evidence of acute cervical spine fracture. 2. Moderate degenerative disc disease primarily from C4 through C6. No abnormal contrast enhancement within the spinal canal. 3. COPD changes. [facility], , 06/27/2024 9:28 PM
== END | disposition home or self-care (01) ==
LOC: RADCTMAIN 13:04
PROVIDERS: ATTEND Psychiatry & Neurology Neurology
DX: G35 Multiple sclerosis
CPT/HCPCS: 36415; 70470; 72127; 72130; 82565; 84520

== ENCOUNTER 2024-08-24 14:49 | Inpatient (IN) | payer MEDICARE ==
[2024-08-24 15:04] LABS: Glucose,Whole Blood 113 mg/dL (70-110)
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
[2024-08-24 15:15] LABS: Basophils # (A) 0.1 k/uL (0-0.2); Basophils % (A) 1 %; Eosinophils # (A) 0.2 k/uL (0-0.7); Eosinophils % (A) 2 %; HCT 47.1 % (34.0-46.0); HGB 14.8 gm/dL (11.4-16.0); Hypochromasia Slight; Lymphocytes # (A) 2.4 k/uL (1.0-4.8); Lymphocytes % (A) 21 %; MCH 29.4 pg (25.0-35.0); MCHC 31.5 g/dL (31.0-37.0); MCV 93.3 fL (80.0-100.0); Mean Platelet Volume 7.8; Monocytes # (A) 0.7 k/uL (0-1.0); Monocytes % (A) 7 %; Neutrophils # (A) 7.4 k/uL (1.3-7.7); Neutrophils % (A) 68 %; Platelet Count 295 k/uL (150-450); RBC 5.05 m/uL (3.80-5.40); RDW 14.1 % (11.5-15.5)
[2024-08-24 15:30] LABS: INR 0.9 (<1.2); Partial Thromboplastin Time 25.3 sec (22.0-30.0); Prothrombin Time 10.3 sec (10.0-12.5)
[2024-08-24 15:31] LABS: ALT 25 U/L (4-34); AST 27 U/L (14-36); African American GFR (CKD) 68 (>60 ml/min/1.73 sqM); Albumin 4.6 g/dL (3.5-5.0); Alkaline Phosphatase 74 U/L (38-126); Anion Gap 8 mmol/L; Blood Urea Nitrogen 14 mg/dL (7-17); Calcium 9.2 mg/dL (8.4-10.2); Carbon Dioxide 25 mmol/L (22-30); Chloride 106 mmol/L (98-107); Creatine Kinase 381 U/L (30-135); Glucose 125 mg/dL (74-99); Non-African American GFR(CKD) 59 (>60 ml/min/1.73 sqM); Potassium 3.9 mmol/L (3.5-5.1); Sodium 139 mmol/L (137-145); Total Bilirubin 1.1 mg/dL (0.2-1.3); Total Protein 7.1 g/dL (6.3-8.2)
[2024-08-24] MEDS: SODIUM CHLORIDE 0.9% 500 ML 500 ML IV STA (15:31)
--- NOTE | 2024-08-24 15:32 | CT ---
EXAMINATION TYPE: CT brain wo con DATE OF EXAM: 08/24/2024 COMPARISON: 11/23/2023 CLINICAL INDICATION: Female, 64 years old with history of Neuro deficit, acute, stroke suspected; PHH , acute stroke CT DLP: combined 1566.2 mGycm Automated exposure control for dose reduction was used. Findings: The ventricles, basal cisterns and sulci over the convexities are completely enlarged consistent with marked atrophy. There is marked decreased density in the periventricular white matter consistent with chronic ischemi c white matter demyelination. There is no acute intra or extra-axial hemorrhage The posterior fossa including the brainstem, fourth ventricle and cerebellar pontine angles appear no rmal. Intraorbital contents appear normal and symmetric. Visualized paranasal sinuses and mastoid air cells are well aerated. The calvarium is intact. IMPRESSION: 1. No acute bleed or mass effect. 2. Marked senescent changes. 3. No interval change. [facility], , 08/24/2024 3:29 PM
--- NOTE | 2024-08-24 15:38 | CT ---
EXAMINATION TYPE: CT angio head neck DATE OF EXAM: 08/24/2024 COMPARISON: 11/23/2023 CLINICAL INDICATION: Female, 64 years old with history of Neuro deficit, acute, stroke suspected; PHH , acute stroke TECHNIQUE: CTA scan of the head and neck is performed with IV Contrast, patient injected with 65ml m L of Isovue 370, axial images are obtained, coronal and sagittal reformatted images are reviewed. 3D reconstructed images are created on an independent workstation and reviewed. CT DLP: combined 1566.[address] CTDI: mGy Automated exposure control for dose reduction was used. NASCET criteria was used in interpretation of this exam? FINDINGS: The brachiocephalic origins are patent with no significant stenosis. There is a severe stenosis of the left carotid bifurcation. There is mild plaque in the right carotid bifurcation but no significant stenosis. Intracranially, there is no stenosis, segmental occlusion, sizable aneurysm sac or vascular malformat ion. IMPRESSION:. Severe stenosis of the left carotid bifurcation within the neck. No significant right ca rotid stenosis. No significant occlusive disease intracranially. NASCET criteria was used in interpretation of this exam? [facility], , 08/24/2024 3:35 PM
--- NOTE | 2024-08-24 16:02 | XR ---
2 view chest HISTORY: Altered mental status. COMPARISON: 02/01/2020. TECHNIQUE: PA and lateral views of chest are obtained. PA and lateral chest HISTORY: Cough, chest pain, shortness of breath COMPARISON: TECHNIQUE: PA and lateral views the chest were obtained. FINDINGS: The lungs are clear of consolidative, interstitial or masslike opacity. There is no pleural effusion, pleural thickening or pneumothorax. The heart, pulmonary vasculature, mediastinum and juju are within normal limits. The osseous structures and soft tissues of the thorax are intact. IMPRESSION: No significant abnormality. No acute cardiopulmonary disease. [facility], Workstation: [facility], 08/24/2024 4:00 PM
[2024-08-24] MEDS ORDERED: NITROGLYCERIN SL TABS 0.4 MG TAB SUBLINGUAL PRN (17:09)
[2024-08-24] MEDS: HEPARIN SODIUM 1,000 UN/ML (10ML VL) IV ONE (17:46)
[2024-08-24] MEDS: HEPARIN SOD,PORK IN 0.45% NACL 25,000 UNIT in 0.45% NACL 1 250ML.BAG IV SCH (17:46)
[2024-08-24] MEDS: NITROGLYCERIN OINT 1 INCH/GM PACKET TOPICAL SCH (18:53)
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
[2024-08-25] MEDS: DENOSUMAB 60 MG/ML 1 ML SYRINGE SQ SCH (09:18)
[2024-08-25] MEDS: CHOLECALCIFEROL 25 MCG (1000 IU) TABLET PO SCH (09:45)
[2024-08-25] MEDS: DULoxetine HCL 60 MG CAPSULE.DR PO SCH (09:45)
[2024-08-25] MEDS: MEMANTINE 5 MG TAB PO SCH (09:45)
[2024-08-25] MEDS: FOLIC ACID 1 MG TAB PO SCH (09:45)
[2024-08-25] MEDS: CLOPIDOGREL 75 MG TAB PO SCH (09:45)
[2024-08-25] MEDS: buPROPion XL 150 MG TAB.ER.24H PO SCH (09:45)
[2024-08-25] MEDS: NON FORMULARY DRUG (Dalfampridine [Dalfampridine Er] 10 MG Tab.Er.12h) PO SCH (10:01)
[2024-08-25 13:17] LABS: Chol/HDL Ratio 2.32 Ratio; LDL Cholesterol,Calculated 102.6 mg/dL (0.0-131.0)
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
--- NOTE | 2024-08-25 16:09 | US ---
EXAMINATION TYPE: US carotid duplex BILAT DATE OF EXAM: 08/25/2024 COMPARISON: CTA 08/24/24 CLINICAL INDICATION: Female, 64 years old with history of stenosis; TIA Additional History: .... TECHNIQUE: Grayscale, color Doppler and spectral Doppler evaluation of the bilateral carotid systems and vertebral arteries. Indirect Doppler criteria was utilized. FINDINGS: EXAM MEASUREMENTS: RIGHT: Peak Systolic Velocity (PSV) cm/sec ----- Right CCA: 72.1 ----- Right ICA: 96.8 ----- Right ECA: 118.0 ICA/CCA ratio: 1.34 RIGHT: End Diastole cm/sec ----- Right CCA: 16.9 ----- Right ICA: 38.3 ----- Right ECA: 11.3 LEFT: Peak Systolic Velocity (PSV) cm/sec ----- Left CCA: 112.0 ----- Left ICA: 141.0 ----- Left ECA: 152.0 ICA/CCA ratio: 1.26 LEFT: End Diastole cm/sec ----- Left CCA: 31.8 ----- Left ICA: 45.4 ----- Left ECA: 24.0 VERTEBRALS (direction of flow): Right Vertebral: Antegrade Left Vertebral: Antegrade Rhythm: Normal CONSULTANT TECHNOLOGY NOTES: Mild atherosclerotic plaque within the right carotid bulb. Moderate-severe plaque formation within the left carotid bulb. Elevated velocities noted within the left ICA and ECA. Color Doppler imaging shows patency with blood flow throughout the carotid artery. Spectral waveforms are within normal limits. IMPRESSION: Right: Less than 50% stenosis of the carotid bifurcation. Normal (no stenosis)=ICA PSV < 125 cm/s: ra carline < 2.0: ICA EDV<40 cm/s. Left: 50-69% stenosis of the carotid bifurcation. 50 to 69% stenosis=ICA PSV of 125 to 230 cm/s: ration 2.0 - 4.0: ICA EDV 40-100 cm/s. Criteria for Assigning % of Stenosis / Diameter reduction (Estimation based on the indirect measurements of the internal carotid artery velocities (ICA PSV). 1. Normal (no stenosis)=ICA PSV < 125 cm/s: ratio < 2.0: ICA EDV<40 cm/s. 2. Less than 50% stenosis=ICA PSV < 125 cm/s: ratio < 2.0: ICA EDV<40 cm/s. 3. 50 to 69% stenosis=ICA PSV of 125 to 230 cm/s: ration 2.0 ? 4.0: ICA EDV 40-100 cm/s. 4. Greater than 70% stenosis to near occlusion= ICA PSV > 230 cm/s: ratio > 4.0: ICA EDV > 100 cm/s. 5. Near occlusion= ICA PSV velocities may be low or undetectable: variable ratio and ICA EDV. 6. Total occlusion=unable to detect flow. [facility], , 08/25/2024 4:06 PM
[2024-08-25] MEDS: BACLOFEN 10 MG TAB PO SCH (17:05)
[2024-08-25] MEDS: ATORVASTATIN 20 MG TAB PO SCH (20:44)
[2024-08-25] MEDS: FAMOTIDINE 20 MG/2 ML VIAL IV SCH (20:45)
[2024-08-25] MEDS: GABAPENTIN 300 MG CAP PO SCH (20:45)
[2024-08-25] MEDS ORDERED: FAMOTIDINE 20 MG/2 ML VIAL IV SCH (21:00)
[2024-08-26 08:29] LABS: Basophils % (A) 0 %; Eosinophils # (A) 0.2 k/uL (0-0.7); Eosinophils % (A) 2 %; HCT 42.6 % (34.0-46.0); HGB 13.3 gm/dL (11.4-16.0); Hypochromasia Slight; Lymphocytes # (A) 2.7 k/uL (1.0-4.8); Lymphocytes % (A) 28 %; MCH 29.2 pg (25.0-35.0); MCHC 31.2 g/dL (31.0-37.0); MCV 93.5 fL (80.0-100.0); Mean Platelet Volume 7.9; Monocytes # (A) 0.5 k/uL (0-1.0); Monocytes % (A) 6 %; Neutrophils # (A) 5.9 k/uL (1.3-7.7); Neutrophils % (A) 62 %; Platelet Count 249 k/uL (150-450); RBC 4.55 m/uL (3.80-5.40); RDW 14.1 % (11.5-15.5); WBC 9.5 k/uL (3.8-10.6)
[2024-08-26 09:23] LABS: African American GFR (CKD) 67 (>60 ml/min/1.73 sqM); Anion Gap 5 mmol/L; Blood Urea Nitrogen 13 mg/dL (7-17); Calcium 8.4 mg/dL (8.4-10.2); Carbon Dioxide 26 mmol/L (22-30); Chloride 113 mmol/L (98-107); Glucose 120 mg/dL (74-99); Non-African American GFR(CKD) 58 (>60 ml/min/1.73 sqM); Potassium 4.3 mmol/L (3.5-5.1); Sodium 144 mmol/L (137-145)
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
--- NOTE | 2024-08-26 11:23 | CT ---
EXAMINATION TYPE: CT brain wo/w con DATE OF EXAM: 08/26/2024 11:18 AM COMPARISON: 08/24/2024 CLINICAL INDICATION: Female, 64 years old with history of left facial droop and hand weakness. cva. r/o ms, FACIAL DROOP TECHNIQUE:Unenhanced followed by contrast enhanced CT of the brain is submitted for evaluation. CT s can of the head is performed with IV Contrast, patient injected with 80 mL of Isovue 300. CT DLP: 2173.1 mGycm, Automated exposure control for dose reduction was used. FINDINGS: The ventricles are midline. Age-related atrophic and small vessel ischemic changes. There is no evid ence for intracranial hemorrhage or extra-axial collection. No mass effects are identified. Visuali zed bony calvarium is intact. Contrast is administered and no enhancing lesions are detected. No pa thologic enhancement is identified. If symptoms persist consider MRI. IMPRESSION: No acute intracranial process or enhancing lesion seen. [facility], , 08/26/2024 11:21 AM
--- NOTE | 2024-08-26 13:53 | P.PN ---
Subjective This is a pleasant 64 years old female with past medical history of multiple medical problems as below, she has history of TIA and she was taking Plavix. She follow-up with Dr. Mcclenodn to Presents because she was thinking she was having a stroke, she was confused, she could not remember things usually she can do, and she could not put things together. Which lasted about 15 minutes Patient denies slurred speech or blurred vision. No headache or dizziness. No weakness or numbness. Currently she feels she is back to her self. No chest pain or dyspnea. No overt GI/ symptoms She denies smoking or illicit drugs or alcohol. Vitals are stable, afebrile She has mild white cell count elevated at 11, rest of CBC, BMP, liver enzymes and INR were unremarkable Troponin is elevated 0.28, 0.22, 0.24 EKG showing sinus rhythm at [address]-T changes Chest x-ray showing no acute pulmonary process CT of the brain is negative for hemorrhage or mass effect CTA of the head and neck showing severe stenosis of the left internal carotid a rtery with no Rt ICA stenosis. No stenosis intracranial vessels Patient resumed her Plavix and placed on heparin drip 08/26 Patient today is more awake and oriented and can provide more information She states she has left upper extremity weakness secondary to her multiple sclerosis. She has the symptoms for about several months. She was taking dulfampridine from her neurologist Dr. Fair and his nurse practitioner However because of the insurance she was not taking this medication for 6 m onths. Yesterday she admitted because of suspected left facial droop and some confusion which lasted for about 15 minutes per Patient on Plavix as one of her home medication. No other new complaint Patient does not walk because of her history of multiple sclerosis Patient confirms to me at home she takes only Plavix. No aspirin or anticoagulation For multiple sclerosis she told me she was not taking medication for the last 6 months as above She is afebrile Blood pressure controlled Mild leukocytosis improved down to 9.5 which is reference range Vascular surgery evaluated the patient and they recommend no surgical intervention and follow-up outpatient for both her carotid disease and peripheral vascular disease. Patient currently does not have significant leg pain Repeat CT of the brain is negative for acute process Patient also wanted to be DNR She is currently on heparin drip for elevated troponin, cardiology has been consulted Review of systems CONSTITUTIONAL: No fever, no malaise, no fatigue. HEENT: No recent visual problems or hearing problems. Denied any sore throat. GENITOURINARY: Denies any burning micturition, frequency, or urgency. MUSCULOSKELETAL/RHEUMATOLOGICAL: Denies any joint pain, swelling, or any muscle pain. ENDOCRINE: Denies any polyuria or polydipsia. Active Medications Generic Name Dose Route Start Last Admin Trade Name Freq PRN Reason Stop Dose Admin Atorvastatin Calcium 20 mg 08/25/24 21:00 08/25/24 20:44 Atorvastatin 20 Mg Tab PO 20 mg HS NITO Administration Baclofen 20 mg 08/25/24 16:00 08/26/24 08:57 Baclofen 10 Mg Tab PO 20 mg TID@00,,16 NITO Administration Bupropion HCl 150 mg 08/25/24 10:00 08/26/24 08:56 Bupropion Xl 150 Mg Tab.Er.24h PO 150 mg DAILY@1000 NITO Administration Cholecalciferol 50 mcg 08/25/24 09:00 08/26/24 08:56 Cholecalciferol 25 Mcg (1000 Iu) Tablet PO 50 mcg DAILY NITO Administration Clopidogrel Bisulfate 75 mg 08/25/24 11:00 08/26/24 08:56 Clopidogrel 75 Mg Tab PO 75 mg DAILY@1000 NITO Administration Duloxetine HCl 60 mg 08/25/24 10:00 08/26/24 08:56 Duloxetine Hcl 60 Mg Capsule.Dr PO 60 mg DAILY@1000 NITO Administration Famotidine 20 mg 08/25/24 21:00 08/26/24 08:56 Famotidine 20 Mg/2 Ml Vial IV 20 mg Q12HR NITO Administration Folic Acid 1 mg 08/25/24 10:00 08/26/24 08:56 Folic Acid 1 Mg Tab PO 1 mg BID@1000,2200 NITO Administration Gabapentin 300 mg 08/25/24 22:00 08/25/24 20:45 Gabapentin 300 Mg Cap PO 300 mg HS@2200 NITO Administration Heparin Sodium/Sodium Chloride 250 mls @ 10 mls/hr 08/24/24 17:15 08/26/24 08:49 25,000 unit/ Sodium Chloride IV 8.603 units/kg/hr .Q24H NITO 7.414 mls/hr Titration Protocol 11.603 UNITS/KG/HR Memantine 5 mg 08/25/24 10:00 08/26/24 08:56 Memantine 5 Mg Tab PO 5 mg BID@1000,2200 [facility] Administration Nitroglycerin 0.4 mg 08/24/24 17:09 Nitroglycerin Sl Tabs 0.4 Mg Tab SUBLINGUAL Q5M PRN Chest Pain Nitroglycerin 1 inch 08/24/24 18:00 08/26/24 12:13 Nitroglycerin Oint 1 Inch/Gm Packet TOPICAL 1 inch Q6HR [facility] Administration Non-Formulary Medication 10 mg 08/25/24 10:00 08/25/24 20:37 Dalfampridine [Dalfampridine Er] PO Not Given BID@1000,2200 [facility] Objective - Vital Signs Vital signs: Vital Signs Temp 98.3 F 08/26/24 12:00 Pulse 87 08/26/24 12:00 Resp 16 08/26/24 12:00 BP 119/66 08/26/24 12:00 Pulse Ox 97 08/26/24 12:00 FiO2 Intake & Output 08/25/24 08/26/24 08/26/24 18:59 06:59 18:59 Intake Total 540 149.63 89.462 Output Total 850 450 Balance 540 -700.37 -360.538 Weight 86.183 kg 81.5 kg Intake: IV 10 Invasive Line 2 10 Intake, IV Titration 139.63 89.462 Amount Heparin Sod,Pork in 0.45% 139.63 89.462 NaCl 25,000 unit In 0.45 % NaCl 1 250ml.bag @ 11. 603 UNITS/KG/HR 10 mls/hr IV .Q24H [facility] Rx#: [id number] Oral 540 Output: Urine 850 450 Other: Voiding Method External Catheter External Catheter - Exam --GENERAL: The patient is alert and oriented x3, not in any acute distress. Well developed, well nourished. Obese generally weak HEENT: Pupils are round and equally reacting to light. EOMI. No scleral icterus. No conjunctival pallor. Normocephalic, atraumatic. No pharyngeal erythema. No thyromegaly. CARDIOVASCULAR: S1 and S2 present. No murmurs, rubs, or gallops. PULMONARY: Chest is clear to auscultation, no wheezing , no crackles. ABDOMEN: Soft, nontender, nondistended, normoactive bowel sounds. No palpable organomegaly. MUSCULOSKELETAL: No joint swelling or deformity. EXTREMITIES: No cyanosis, clubbing, or pedal edema. -NEUROLOGICAL: Gross neurological examination did not reveal any focal deficits. Does not walk at baseline SKIN: No rashes. no petechiae. - Labs CBC & Chem 7: 08/26/24 07:59 08/26/24 07:59 Labs: Abnormal Lab Results - Last 24 Hours (Table) 08/25/24 08/26/24 08/26/24 Range/Units 07:56 07:59 07:59 APTT 59.4 H (22.0-30.0) sec Chloride 113 H (98-107) mmol/L Glucose 120 H (74-99) mg/dL Creatine Kinase 394 H (26-186) U/L Assessment and Plan Assessment: Transit president of confusion suspicious for TIA, also was concerned about her left facial droop Elevated troponin, rule out non-STEMI Severe left internal carotid artery stenosis, asymptomatic Multiple sclerosis with chronic left upper extremity weakness Depression Mild leukocytosis, resolved Obesity with BMI of 31.6 Plan: Continue with heparin drip Resume Plavix Cardiology and neurology consult Repeat CT of the brain has been reviewed Vascular surgery recommended outpatient follow-up, patient informed and she agrees to follow-up with Dr. Brizuela as an outpatient Labs and medication were reviewed.. Continue same treatment. Continue with symptomatic treatment. Resume home medication. Monitor labs and vitals. DVT and GI prophylaxis. Further recommendations as per clinical course of the patient DVT prophylaxis: heparin GI Prophylaxis: Pepcid PT/OT: Pending Prognosis is guarded
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
[2024-08-26] MEDS ORDERED: REGADENOSON 0.4 MG/5 ML SYRINGE IV PRN ×2 (15:27→15:28)
--- NOTE | 2024-08-26 15:27 | CA ---
Transthoracic Echo Report Name: Johanna Franks Age: 64 Gender: F : 1960 Exam Date: 08/25/2024 11:58 Exam Location: [place] [facility] Ht (in): 65 Wt (lb): 190 Ordering Physician: Myron Qureshi MD ([email or web address]) Attending/Referring Phys: [employer] Clerk Staci Ritter RDCS Procedure CPT: Indications: nstemi Cardiac Hx: Technical Quality: Fair Contrast 1: Total Dose (mL): Contrast 2: Total Dose (mL): MEASUREMENTS (Male / Female) Normal Values 2D ECHO LV Diastolic Diameter PLAX 3.0 cm 4.2 - 5.9 / 3.9 - 5.3 cm LV Systolic Diameter PLAX 2.2 cm IVS Diastolic Thickness 1.1 cm 0.6 - 1.0 / 0.6 - 0.9 cm LVPW Diastolic Thickness 0.9 cm 0.6 - 1.0 / 0.6 - 0.9 cm LV Relative Wall Thickness 0.7 RV Internal Dim ED PLAX 2.2 cm LVOT Diameter 1.8 cm LV Diastolic Volume MOD BP 62.3 cm??? 67 - 155 / 56 - 104 cm??? LV Systolic Volume MOD BP 29.5 cm??? 22 - 58 / 19 - 49 cm??? LV Ejection Fraction MOD BP 52.6 % >= 55 % LV Cardiac Index MOD BP 1427.8 cm???/min???m??? LV Diastolic Volume MOD 4C 67.8 cm??? LV Systolic Volume MOD 4C 32.5 cm??? LV Ejection Fraction MOD 4C 52.1 % LV Cardiac Index MOD 4C 1538.8 cm???/min???m??? LV Diastolic Length 4C 6.6 cm LV Systolic Length 4C 6.3 cm LV Diastolic Volume MOD 2C 53.6 cm??? LV Systolic Volume MOD 2C 26.6 cm??? LV Ejection Fraction MOD 2C 50.3 % LV Cardiac Index MOD 2C 1174.7 cm???/min???m??? LV Diastolic Length 2C 7.1 cm LV Systolic Length 2C 6.8 cm LA Volume 27.2 cm??? 18 - 58 / 22 - 52 cm??? LA Volume Index 13.5 cm???/m??? 16 - 28 cm???/m??? DOPPLER AV Peak Velocity 103.1 cm/s AV Peak Gradient 4.3 mmHg AV Mean Velocity 73.7 cm/s AV Mean Gradient 2.4 mmHg AV Velocity Time Integral 16.0 cm LVOT Peak Velocity 90.0 cm/s LVOT Peak Gradient 3.2 mmHg LVOT Velocity Time Integral 16.9 cm LVOT Stroke Volume 44.9 cm??? LVOT Stroke Volume Index 23.2 ml/m??? LVOT Cardiac Index 1958.9 cm???/min???m??? AV Area Cont Eq vti 2.8 cm??? AV Area Cont Eq pk 2.3 cm??? MV Area PHT 3.0 cm??? Mitral E Point Velocity 39.5 cm/s Mitral A Point Velocity 98.7 cm/s Mitral E to A Ratio 0.4 MV Deceleration Time 255.3 ms MV E' Velocity 3.7 cm/s Mitral E to MV E' Ratio 10.7 FINDINGS Left Ventricle Mildly increased left ventricular wall thickness. Left ventricular cavity size normal. No obvious regional wall motion abnormalities. Left ventricular ejection fraction is estimated at 50-55 %. Right Ventricle Normal right ventricular size and function. Right Atrium Normal right atrial size. Left Atrium Normal left atrial size. Mitral Valve Structurally normal mitral valve. Mitral valve thickened. Mild mitral annular calcification. Trace to mild mitral regurgitation. Aortic Valve Trileaflet aortic valve. No aortic stenosis. No aortic regurgitation. Focal thickening of the aortic valve cusps. Tricuspid Valve Structurally normal tricuspid valve. Trace to mild tricuspid regurgitation. Pulmonic Valve Structurally normal pulmonic valve. Pericardium No pericardial effusion. Aorta Normal size aortic root and proximal ascending aorta. CONCLUSIONS LVEF 55 % Hyperdynamic LV No obvious regional wall motion abnormality seen Mild MR and ild TR Focal thickening of aortic valve leaflets seen , no stenosis No effusion Previewed by: Dr Myron Qureshi (Electronically Signed) Final Date: 26 August 2024 15:25
[2024-08-26] MEDS ORDERED: CAFFEINE CITRATE 60 MG/3 ML VIAL IV PRN (15:28)
[2024-08-26] MEDS ORDERED: AMINOPHYLLINE 500 MG/20 ML VIAL IV PRN (15:28)
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
[2024-08-26] MEDS: ASPIRIN 81 MG PO SCH (15:55)
[2024-08-26] MEDS: RIVAROXABAN 2.5 MG TABLET PO SCH (21:28)
[2024-08-27 09:36] VITALS: TEMP 97.9
[2024-08-27 10:52] VITALS: BMI 32.4
--- NOTE | 2024-08-27 11:16 | P.PN ---
Subjective This is a pleasant 64 years old female with past medical history of multiple medical problems as below, she has history of TIA and she was taking Plavix. She follow-up with Dr. Mcclendon to Presents because she was thinking she was having a stroke, she was confused, she could not remember things usually she can do, and she could not put things together. Which lasted about 15 minutes Patient denies slurred speech or blurred vision. No headache or dizziness. No weakness or numbness. Currently she feels she is back to her self. No chest pain or dyspnea. No overt GI/ symptoms She denies smoking or illicit drugs or alcohol. Vitals are stable, afebrile She has mild white cell count elevated at 11, rest of CBC, BMP, liver enzymes and INR were unremarkable Troponin is elevated 0.28, 0.22, 0.24 EKG showing sinus rhythm at [address]-T changes Chest x-ray showing no acute pulmonary process CT of the brain is negative for hemorrhage or mass effect CTA of the head and neck showing severe stenosis of the left internal carotid a rtery with no Rt ICA stenosis. No stenosis intracranial vessels Patient resumed her Plavix and placed on heparin drip 08/26 Patient today is more awake and oriented and can provide more information She states she has left upper extremity weakness secondary to her multiple sclerosis. She has the symptoms for about several months. She was taking dulfampridine from her neurologist Dr. Fair and his nurse practitioner However because of the insurance she was not taking this medication for 6 m onths. Yesterday she admitted because of suspected left facial droop and some confusion which lasted for about 15 minutes per Patient on Plavix as one of her home medication. No other new complaint Patient does not walk because of her history of multiple sclerosis Patient confirms to me at home she takes only Plavix. No aspirin or anticoagulation For multiple sclerosis she told me she was not taking medication for the last 6 months as above She is afebrile Blood pressure controlled Mild leukocytosis improved down to 9.5 which is reference range Vascular surgery evaluated the patient and they recommend no surgical intervention and follow-up outpatient for both her carotid disease and peripheral vascular disease. Patient currently does not have significant leg pain Repeat CT of the brain is negative for acute process Patient also wanted to be DNR She is currently on heparin drip for elevated troponin, cardiology has been consulted 08/27 Patient feels better She is trying to participate in therapy today No chest pain or dyspnea. Heparin drip was discontinued and zigzag machine operator recommend outpatient ischemic workup within 30 days Neurology still following the patient Objective - Vital Signs Vital signs: Vital Signs Temp 97.9 F 08/27/24 08:50 Pulse 69 08/27/24 08:50 Resp 18 08/27/24 08:50 BP 125/81 08/27/24 08:50 Pulse Ox 92 L 08/27/24 08:50 FiO2 Intake & Output 08/26/24 08/27/24 08/27/24 18:59 06:59 18:59 Intake Total 209.462 180 Output Total 850 1600 Balance -640.538 -1600 180 Weight 88.5 kg 88.5 kg Intake: Intake, IV Titration 89.462 Amount Heparin Sod,Pork in 0.45% 89.462 NaCl 25,000 unit In 0.45 % NaCl 1 250ml.bag @ 11. 603 UNITS/KG/HR 10 mls/hr IV .Q24H [facility] Rx#: [id number] Oral 120 180 Output: Urine 850 1600 Other: Voiding Method External Catheter Diaper Diaper External Catheter External Catheter # Voids 1 # Bowel Movements 1 - Exam --GENERAL: The patient is alert and oriented x3, not in any acute distress. Well developed, well nourished. Obese generally weak HEENT: Pupils are round and equally reacting to light. EOMI. No scleral icterus. No conjunctival pallor. Normocephalic, atraumatic. No pharyngeal erythema. No thyromegaly. CARDIOVASCULAR: S1 and S2 present. No murmurs, rubs, or gallops. PULMONARY: Chest is clear to auscultation, no wheezing , no crackles. ABDOMEN: Soft, nontender, nondistended, normoactive bowel sounds. No palpable organomegaly. MUSCULOSKELETAL: No joint swelling or deformity. EXTREMITIES: No cyanosis, clubbing, or pedal edema. -NEUROLOGICAL: Gross neurological examination did not reveal any focal deficits. Does not walk at baseline SKIN: No rashes. no petechiae. - Labs CBC & Chem 7: 08/26/24 07:59 08/26/24 07:59 Labs: Abnormal Lab Results - Last 24 Hours (Table) 08/25/24 Range/Units 07:56 Creatine Kinase 394 H (26-186) U/L Assessment and Plan Assessment: Transit president of confusion suspicious for TIA, also was concerned about her left facial droop Elevated troponin, rule out non-STEMI Severe left internal carotid artery stenosis, asymptomatic Multiple sclerosis with chronic left upper extremity weakness Depression Mild leukocytosis, resolved Obesity with BMI of 31.6 Plan: Stop heparin drip, patient was started on Xarelto Resume Plavix Cardiology and neurology consult. Timber Surveyor recommend ischemic workup in 30 days as an outpatient Vascular surgery recommended outpatient follow-up, patient informed and she agrees to follow-up with Dr. Brizuela as an outpatient Labs and medication were reviewed.. Continue same treatment. Continue with symptomatic treatment. Resume home medication. Monitor labs and vitals. DVT and GI prophylaxis. Further recommendations as per clinical course of the patient DVT prophylaxis: Xarelto GI Prophylaxis: Pepcid PT/OT: Pending Prognosis is guarded
--- NOTE | 2024-08-27 11:44 | P.PN ---
Subjective Progress Note Date: 08/27/24 Patient is seen and examined today as a follow-up. Denies any acute changes or focal deficits. States she came in because she had some confusion where she felt that things that she used to know she did not know anymore. She has a left lower extremity contracture. Carotid duplex reviewed less than 50% bilateral stenosis per updated criteria. Repeat brain CT with no acute findings. Objective - Vital Signs Vital signs: Vital Signs Temp 98.0 F 08/26/24 20:00 Pulse 83 08/27/24 04:00 Resp 18 08/27/24 04:00 BP 129/77 08/27/24 04:00 Pulse Ox 99 08/27/24 04:00 FiO2 Intake & Output 08/26/24 08/27/24 08/27/24 18:59 06:59 18:59 Intake Total 209.462 180 Output Total 850 1600 Balance -640.538 -1600 180 Weight 88.5 kg Intake: Intake, IV Titration 89.462 Amount Heparin Sod,Pork in 0.45% 89.462 NaCl 25,000 unit In 0.45 % NaCl 1 250ml.bag @ 11. 603 UNITS/KG/HR 10 mls/hr IV .Q24H [facility] Rx#: [id number] Oral 120 180 Output: Urine 850 1600 Other: Voiding Method External Catheter Diaper External Catheter # Voids 1 # Bowel Movements 1 - Exam General appearance: The patient is alert, oriented, appears in no acute distress. HET: Head is normocephalic and atraumatic. Pupils are equal and reactive. Neck: Supple. Right carotid bruit. Heart: Regular. Lungs: Equal expansion, normal respiratory effort. Abdomen: Soft, nontender, nondistended. Extremities: Left lower extremity contracture at the knee and hip. Left ankle with pressure wound to fat layer. Neurological: No focal deficits. Strength and sensation are grossly intact. - Labs CBC & Chem 7: 08/26/24 07:59 08/26/24 07:59 Labs: Abnormal Lab Results - Last 24 Hours (Table) 08/25/24 08/26/24 Range/Units 07:56 07:59 Chloride 113 H (98-107) mmol/L Glucose 120 H (74-99) mg/dL Creatine Kinase 394 H (26-186) U/L Assessment and Plan Assessment: 1. History of multiple sclerosis 2. Less than 50% stenosis of bilateral internal carotid arteries per carotid duplex updated criteria 3. Peripheral arterial disease with ischemic contracture of the left lower extremity 4. Left ankle pressure ulcer Plan: 1. Recommend outpatient follow-up for left lower extremity peripheral arterial disease as well as surveillance of carotid stenosis. 2. Consult to wound care for left ankle pressure ulcer 3. Continue with further recommendations from neurology Thank you for this consultation. The impression and plan of care has been dictated as directed. I performed a history and examination of this patient, discussed the same with the dictator. I agree with the dictator's note ,documented as a scribe. Any additional findings or plans will be noted.
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
[2024-08-27 13:37] VITALS: RESP 17
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
[2024-08-27 15:51] VITALS: BP 102/67; PULSE 92
[2024-08-27] MEDS ORDERED: FAMOTIDINE 20 MG TAB PO SCH (21:00)
== END 2024-08-27 16:43 | disposition home health service (06) | DRG 69 ==
LOC: EC 14:49 → 3SCARD 17:09
PROVIDERS: ADMIT Family Medicine; ATTEND Family Medicine
DX: G45.9 Transient cerebral ischemic attack, unspecified (principal); I21.4 Non-ST elevation (NSTEMI) myocardial infarction; T85.695A Other mechanical complication of other nervous system device, implant or graft, initial encounter; E66.9 Obesity, unspecified; Z68.32 Body mass index [BMI] 32.0-32.9, adult; I65.22 Occlusion and stenosis of left carotid artery; G35 Multiple sclerosis; F32.A Depression, unspecified; L89.522 Pressure ulcer of left ankle, stage 2; I73.9 Peripheral vascular disease, unspecified; Y75.2 Prosthetic and other implants, materials and neurological devices associated with adverse incidents; Z66 Do not resuscitate; Z79.02 Long term (current) use of antithrombotics/antiplatelets; Z79.899 Other long term (current) drug therapy; Z86.73 Personal history of transient ischemic attack (TIA), and cerebral infarction without residual deficits; Z87.891 Personal history of nicotine dependence
CPT/HCPCS: 36415; 70450; 70470; 70496; 70498; 71046; 80048; 80053; 80061; 82550; 84484; 85025; 85610; 85730; 93005; 93306; 93880; 96361; 96365; 96366; 99291

== ENCOUNTER 2024-09-13 16:19 | Emergency (ER) | payer MEDICARE ==
[2024-09-13 16:28] VITALS: RESP 18
[2024-09-13] MEDS: ACETAMINOPHEN TAB 500 MG TAB PO STA (17:22)
[2024-09-13] MEDS: DIPH,PERTUS(ACELL)TETVAC-LF 0.5 ML VIAL IM ONE (17:23)
[2024-09-13] MEDS: LIDOCAINE 1% INJ 10MG/ML (20 ML MDV) SQ ONE (17:24)
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
[2024-09-13 18:31] VITALS: PULSE 65
[2024-09-13 20:40] VITALS: BP 104/62; TEMP 97.6
== END 2024-09-13 21:22 | disposition home or self-care (01) ==
LOC: EC 16:19
DX: S81.812A Laceration without foreign body, left lower leg, initial encounter (principal); Z23 Encounter for immunization; Z88.0 Allergy status to penicillin; Z87.891 Personal history of nicotine dependence; Z88.6 Allergy status to analgesic agent; W26.8XXA Contact with other sharp object(s), not elsewhere classified, initial encounter
CPT/HCPCS: 73590; 90715; 12006; 99283; 90471; J2003

== ENCOUNTER → 2024-10-11 | Outpatient (CLI) | payer MEDICARE ==
[2024-10-12 03:27] LABS: HCT 40.7 % (37.2-46.3); HGB 12.8 g/dL (12.0-15.0); MCH 28.2 pg (27.0-32.0); MCHC 31.4 g/dL (32.0-37.0); MCV 89.6 FL (80.0-97.0); Mean Platelet Volume 10.6 FL (9.5-12.2); NRBC Per 100 WBC 0 X 10*3/uL (0.00-0.01); Platelet Count 477 X 10*3/uL (140-440); RBC 4.54 X 10*6/uL (4.10-5.20); RDW 15.4 % (11.5-14.5); WBC 15.69 X 10*3/uL (4.50-10.00)
[2024-10-12 04:09] LABS: NT-Pro-B-Type Natriuretic Pept 10246 pg/mL (0-125)
[2024-10-12 04:31] LABS: ALT 29 U/L (8-44); AST 44 U/L (13-35); Albumin 3.5 g/dL (3.8-4.9); Albumin/Globulin Ratio 1.52 Ratio (1.60-3.17); Alkaline Phosphatase 123 U/L (41-126); BUN/Creat Ratio 13.38 Ratio (12.00-20.00); Blood Urea Nitrogen 17.4 mg/dL (9.0-27.0); Calcium 9.7 mg/dL (8.7-10.3); Carbon Dioxide 27.7 mmol/L (21.6-31.8); Chloride 94 mmol/L (96-109); Chol/HDL Ratio 2.35 Ratio; Globulin 2.3 g/dL (1.6-3.3); Glucose 124 mg/dL (70-110); LDL Cholesterol,Calculated 75.4 mg/dL (0.0-131.0); Potassium 2.8 mmol/L (3.5-5.5); Sodium 146 mmol/L (135-145); Total Bilirubin 0.7 mg/dL (0.3-1.2); Total Protein 5.8 g/dL (6.2-8.2); VLDL Calculation 17.14 mg/dL (5.00-40.00)
== END | disposition home or self-care (01) ==
LOC: LABWHC1 15:48
PROVIDERS: ATTEND Student in an Organized Health Care Education/Training Program
DX: I50.9 Heart failure, unspecified (principal); E11.9 Type 2 diabetes mellitus without complications; E78.5 Hyperlipidemia, unspecified; D72.9 Disorder of white blood cells, unspecified; R79.89 Other specified abnormal findings of blood chemistry
CPT/HCPCS: 36415; 80053; 80061; 83036; 83880; 84443; 85027; 86141

== ENCOUNTER 2024-10-15 21:35 | Inpatient (IN) | payer MEDICARE ==
[2024-10-15 21:47] LABS: Glucose,Whole Blood 146 mg/dL (70-110)
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
[2024-10-15 22:15] LABS: HCT 42.2 % (34.0-46.0); HGB 13.4 gm/dL (11.4-16.0); Hypochromasia Slight; MCH 28.4 pg (25.0-35.0); MCHC 31.9 g/dL (31.0-37.0); MCV 89.1 fL (80.0-100.0); Mean Platelet Volume 7.8; Platelet Count 490 k/uL (150-450); RBC 4.74 m/uL (3.80-5.40); RDW 15.1 % (11.5-15.5)
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
[2024-10-15 22:24] LABS: INR 1.3 (<1.2); Partial Thromboplastin Time 27.2 sec (22.0-30.0); Prothrombin Time 13.7 sec (10.0-12.5)
[2024-10-15 22:32] LABS: ALT 39 U/L (4-34); AST 45 U/L (14-36); African American GFR (CKD) 43 (>60 ml/min/1.73 sqM); Albumin 3.4 g/dL (3.5-5.0); Alkaline Phosphatase 150 U/L (38-126); Anion Gap 11 mmol/L; Blood Urea Nitrogen 21 mg/dL (7-17); Calcium 9.6 mg/dL (8.4-10.2); Carbon Dioxide 29 mmol/L (22-30); Chloride 98 mmol/L (98-107); Glucose 152 mg/dL (74-99); Non-African American GFR(CKD) 38 (>60 ml/min/1.73 sqM); Potassium 3.9 mmol/L (3.5-5.1); Sodium 138 mmol/L (137-145); Total Bilirubin 1.3 mg/dL (0.2-1.3); Total Protein 6.2 g/dL (6.3-8.2)
[2024-10-15 22:39] LABS: VBG PH 7.4 (7.31-7.41)
[2024-10-15 22:45] LABS: Band Neutrophils % 6 %; Large Platelets Present; Lymphocytes # (M) 1.61 k/uL (1.0-4.8); Metamyelocytes # (M) 0.46 k/uL (0); Metamyelocytes % 2 %; Monocytes # (M) 0.46 k/uL (0-1.0); Myelocytes # (M) 0.23 k/uL (0); Myelocytes % 1 %; Neutrophils % (M) 85 %; Nucleated Red Blood Cells 0 /100 WBC (0-0); Total Cells Counted 200; Toxic Vacuolation Present
[2024-10-15 22:46] LABS: Polychromasia Present
[2024-10-15] MEDS: SODIUM CHLORIDE 0.9% 500 ML 500 ML IV ONE (23:23)
[2024-10-15] MEDS: SODIUM CHLORIDE 0.9% 1,000 ML IV SCH (23:24)
[2024-10-15 23:41] LABS: Amorphous Sediment,Urine Moderate /hpf; Appearance,Urine Turbid (Clear); Bacteria,Urine Moderate /hpf; Bilirubin,Urine Negative (Negative); Blood,Urine Large (Negative); Color,Urine Yellow; Glucose,Urine (UA) Negative (Negative); Granular Casts,Urine 40 /lpf (0); Hyaline Casts,Urine 54 /lpf (0-2); Ketones,Urine Negative (Negative); Leukocyte Esterase,Urine Large (Negative); Mucus,Urine Rare /hpf; Nitrite,Urine Negative (Negative); Protein,Urine 2+ (Negative); RBC,Urine 2 /hpf (0-5); Specific Gravity,Urine 1.016 (1.001-1.035); Squamous Epithelial Cell,Urine 3 /hpf (0-4); Urobilinogen,Urine <2.0 mg/dL (<2.0); WBC,Urine >182 /hpf (0-5)
[2024-10-15] MEDS ORDERED: NALOXONE 0.4 MG/ML 1 ML VIAL IV PRN (23:43)
--- NOTE | 2024-10-15 23:43 | CT ---
EXAM: CT Head Without Intravenous Contrast CLINICAL HISTORY: ITS.REASON CT Reason: Altered mental status TECHNIQUE: Axial computed tomography images of the head/brain without intravenous contrast. CTDI is oh 49.2 mGy and DLP is 1272.4 mGy-cm. This CT exam was performed using one or more of the following dose reduction techniques: automated exposure control, adjustment of the mA and/or kV according to patient size, and/or use of iterative reconstruction technique. COMPARISON: No relevant prior studies available. FINDINGS: No acute intracranial hemorrhage. No midline shift or mass effect. The territorial romero-white matter differentiation is maintained throughout. Age-related cerebral volume loss. Periventricular and subcortical white matter hypoattenuation, consistent with chronic microangiopathy. The visualized orbits appear grossly unremarkable. The calvarium is intact. The visualized paranasal sinuses and mastoid air cells are grossly clear. IMPRESSION: No acute intracranial hemorrhage, midline shift, or mass effect.
[2024-10-16] MEDS ORDERED: VANCOMYCIN IV PER PHARMACY 1 EACH MISC MISCELLANE PRN
[2024-10-16 00:04] LABS: Influenza A Not Detected (Not Detectd); Influenza B Not Detected (Not Detectd); RSV Not Detected (Not Detectd)
[2024-10-16] MEDS: VANCOMYCIN 1,750 MG in SODIUM CHLORIDE 0.9% 500 ML 500 ML IVPB ONE (01:09)
[2024-10-16] MEDS: LACTATED RINGERS 1,000 ML IV STA (01:34)
[2024-10-16 10:53] LABS: Basophils # (A) 0.1 k/uL (0-0.2); Basophils % (A) 0 %; Eosinophils % (A) 0 %; HCT 39.3 % (34.0-46.0); HGB 12.4 gm/dL (11.4-16.0); Hypochromasia Moderate; Lymphocytes # (A) 1.7 k/uL (1.0-4.8); Lymphocytes % (A) 6 %; MCH 28.9 pg (25.0-35.0); MCHC 31.5 g/dL (31.0-37.0); MCV 91.8 fL (80.0-100.0); Mean Platelet Volume 8.5; Monocytes # (A) 0.6 k/uL (0-1.0); Monocytes % (A) 2 %; Neutrophils # (A) 27.8 k/uL (1.3-7.7); Neutrophils % (A) 92 %; Platelet Count 395 k/uL (150-450); RBC 4.28 m/uL (3.80-5.40); RDW 15.1 % (11.5-15.5); WBC 30.4 k/uL (3.8-10.6)
[2024-10-16 10:59] LABS: AST 35 U/L (14-36); African American GFR (CKD) 47 (>60 ml/min/1.73 sqM); Albumin 2.9 g/dL (3.5-5.0); Alkaline Phosphatase 120 U/L (38-126); Anion Gap 10 mmol/L; Blood Urea Nitrogen 19 mg/dL (7-17); Calcium 8.8 mg/dL (8.4-10.2); Carbon Dioxide 27 mmol/L (22-30); Chloride 105 mmol/L (98-107); Glucose 157 mg/dL (74-99); Non-African American GFR(CKD) 41 (>60 ml/min/1.73 sqM); Potassium 4.4 mmol/L (3.5-5.1); Sodium 142 mmol/L (137-145); Total Bilirubin 1.1 mg/dL (0.2-1.3); Total Protein 5.2 g/dL (6.3-8.2)
[2024-10-16 12:04] LABS: ALT 39 U/L (4-34)
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
[2024-10-16] MEDS: SYMBICORT 160-4.5 MCG INHALER INHALATION SCH (20:42)
[2024-10-16] MEDS: ATORVASTATIN 80 MG TAB PO SCH (21:13)
[2024-10-16] MEDS: FOLIC ACID 1 MG TAB PO SCH (21:13)
[2024-10-16] MEDS: MEMANTINE 5 MG TAB PO SCH (21:13)
[2024-10-16] MEDS: BACLOFEN 10 MG TAB PO SCH (21:13)
[2024-10-16] MEDS: GABAPENTIN 300 MG CAP PO SCH (21:13)
[2024-10-16] MEDS: RIVAROXABAN 2.5 MG TABLET PO SCH (21:14)
[2024-10-16] MEDS: cilostazoL 100 MG TAB PO SCH (22:08)
[2024-10-17] MEDS: VANCOMYCIN 1,500 MG in SODIUM CHLORIDE 0.9% 500 ML 500 ML IVPB SCH (00:53)
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
[2024-10-17 07:01] LABS: ALT 32 U/L (4-34); AST 34 U/L (14-36); African American GFR (CKD) 50 (>60 ml/min/1.73 sqM); Albumin 2.4 g/dL (3.5-5.0); Alkaline Phosphatase 117 U/L (38-126); Anion Gap 3 mmol/L; Blood Urea Nitrogen 17 mg/dL (7-17); Carbon Dioxide 28 mmol/L (22-30); Chloride 106 mmol/L (98-107); Glucose 130 mg/dL (74-99); Non-African American GFR(CKD) 43 (>60 ml/min/1.73 sqM); Potassium 3.4 mmol/L (3.5-5.1); Sodium 137 mmol/L (137-145); Total Protein 4.6 g/dL (6.3-8.2)
[2024-10-17 07:54] LABS: HCT 35.3 % (34.0-46.0); HGB 10.5 gm/dL (11.4-16.0); Hypochromasia Moderate; MCH 27.1 pg (25.0-35.0); MCHC 29.8 g/dL (31.0-37.0); MCV 90.9 fL (80.0-100.0); Mean Platelet Volume 7.9; Platelet Count 334 k/uL (150-450); RBC 3.88 m/uL (3.80-5.40); WBC 31.7 k/uL (3.8-10.6)
[2024-10-17] MEDS: CHOLECALCIFEROL 25 MCG (1000 IU) TABLET PO SCH (08:13)
[2024-10-17] MEDS: ASPIRIN 81 MG PO SCH (08:14)
[2024-10-17 08:32] LABS: Band Neutrophils % 7 %; Lymphocytes # (M) 1.59 k/uL (1.0-4.8); Monocytes # (M) 0.63 k/uL (0-1.0); Neutrophils % (M) 86 %; Nucleated Red Blood Cells 0 /100 WBC (0-0); Total Cells Counted 100
[2024-10-17] MEDS: ASCORBIC ACID 500 MG TAB PO SCH (10:57)
[2024-10-17 11:00] VITALS: BMI 40.2
[2024-10-17] MEDS: buPROPion XL 150 MG TAB.ER.24H PO SCH (11:21)
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
--- NOTE | 2024-10-17 14:55 | P.PN ---
Subjective Progress Note Date: 10/17/24 Reason for Consult (text): Elevated troponins History of present illness: This is 64-year-old female patient of Dr. Qureshi with past medical history of TIA in August 2024 as well as a non-ST ITZEL type II in August 2024, severe PAD involving left lower extremity, severe left internal carotid stenosis, morbid obesity, debility wheelchair-bound, chronic pain with baclofen pump. We have been asked to evaluate the patient for elevated troponins. Patient was brought into the hospital due to mental status changes and leaning to the right with left facial droop. Blood pressure 132/84, pulse ox 99% on room air, heart rate 97. Patient is afebrile. Patient is seen today in the emergency center waiting for a bed on the cardiac stepdown unit. Neurology is on consult. Patient was seen by cardiology during hospitalization in August 2024. Patient had a follow-up appointment with Dr. Qureshi on 09/07 and plan is for outpatient Lexiscan stress test which is scheduled for next week. -EKG: Sinus rhythm 117 bpm -Chest x-ray: No acute process -CT brain: No acute intracranial hemorrhage, midline shift or mass effect. -Laboratory studies: WBC 30.4, potassium 4.4, sodium 142, BUN 19 and creatinine 1.36. Troponin 0.315 and 0.243. Urinalysis positive for UTI. Influenza A, influenza B, RSV, COVID-19 not detected. -Home cardiac medications: Aspirin 81 mg daily, Xarelto 2.5 mg twice daily, Crestor 40 mg at bedtime. -Echocardiogram performed 08/25/2024 revealed EF 55%, hyperdynamic LV. Mild MR and mild TR. 10/17/2024 Patient seen and examined. Patient is continued on treatment for UTI and sepsis. Blood pressure 87/64, heart rate 112, pulse ox 93% on room air. WBC 31.7, hemoglobin 10.5, creatinine 1.3 Physical examination: Gen: This is a 64-year-old female in no acute distress VS: reviewed HEENT: Head is atraumatic, normocephalic. Pupils equal, round. Sclerae is anicteric. NECK: Supple. No JVD. LUNGS: Clear to auscultation. No wheezes or rhonchi. No intercostal retractions. HEART: Regular rate and rhythm. No murmur. ABDOMEN: Soft No tenderness. EXTREMITIES: Erythema with edema. No calf tenderness. NEUROLOGICAL: Patient is awake. Assessment: Metabolic encephalopathy rule out CVA UTI and sepsis Elevated flat troponins, with chronically elevated troponins Type II [place] secondary to sepsis History of TIA in 2023 History of NSTEMI, type II, in 2023 Severe PAD involving the left lower extremity on Xarelto Severe left internal carotid stenosis Morbid obesity with BMI of 40 Debility and wheelchair-bound Plan: Resume patient's home cardiac medications No plan for cardiac workup at this time. Once patient's infection is resolved, patient will follow-up with Dr. Qureshi for stress test. No need to repeat echocardiogram Cardiology will sign off this case and follow on an as-needed basis. Please reconsult for any new concerns. Patient may follow-up in the office in one to 2 weeks. has been instructed to keep appointment for stress test scheduled in the office on 10/23 Nurse practitioner note has been reviewed, I agree with documented findings and plan of care. Patient was seen and examined. Objective - Vital Signs Vital signs: Vital Signs Temp 98.3 F 10/17/24 08:00 Pulse 112 H 10/17/24 08:00 Resp 14 10/17/24 08:00 BP 87/64 10/17/24 08:00 Pulse Ox 94 L 10/17/24 08:01 FiO2 Intake & Output 10/16/24 10/17/24 10/17/24 18:59 06:59 18:59 Output Total 0 Balance 0 Weight 99.79 kg Output: Urine 0 Other: Voiding Method External Catheter External Catheter External Catheter # Voids 1 - Labs CBC & Chem 7: 10/17/24 06:24 10/17/24 06:24 Labs: Abnormal Lab Results - Last 24 Hours (Table) 10/16/24 10/16/24 10/17/24 Range/Units 08:26 08:26 06:24 WBC 30.4 H (3.8-10.6) k/uL Hgb (11.4-16.0) gm/dL MCHC (31.0-37.0) g/dL Neutrophils # 27.8 H (1.3-7.7) k/uL Neutrophils # (Manual) (1.3-7.7) k/uL Potassium 3.4 L (3.5-5.1) mmol/L BUN 19 H (7-17) mg/dL Creatinine 1.36 H 1.30 H (0.52-1.04) mg/dL Glucose 157 H 130 H (74-99) mg/dL Calcium 8.0 L (8.4-10.2) mg/dL ALT 39 H (4-34) U/L Total Protein 5.2 L 4.6 L (6.3-8.2) g/dL Albumin 2.9 L 2.4 L (3.5-5.0) g/dL 10/17/24 Range/Units 06:24 WBC 31.7 H (3.8-10.6) k/uL Hgb 10.5 L (11.4-16.0) gm/dL MCHC 29.8 L (31.0-37.0) g/dL Neutrophils # (1.3-7.7) k/uL Neutrophils # (Manual) 29.40 H (1.3-7.7) k/uL Potassium (3.5-5.1) mmol/L BUN (7-17) mg/dL Creatinine (0.52-1.04) mg/dL Glucose (74-99) mg/dL Calcium (8.4-10.2) mg/dL ALT (4-34) U/L Total Protein (6.3-8.2) g/dL Albumin (3.5-5.0) g/dL Microbiology - Last 24 Hours (Table) 10/15/24 23:04 Urine Culture - Preliminary Urine,Clean Catch Gram Neg Bacilli 10/15/24 23:11 Blood Culture - Preliminary Blood
[2024-10-17] MEDS: LIDOCAINE 1% INJ 10MG/ML (20 ML MDV) SQ ONE (16:30)
[2024-10-17] MEDS: SILVER NITRATE APPLICATOR 1 EACH STICK..EA. TOPICAL ONE (16:30)
--- NOTE | 2024-10-17 17:38 | CA ---
Transthoracic Echo Report Name: Johanna Franks Age: 64 Gender: F : 1960 Exam Date: 10/16/2024 14:39 Exam Location: [place] [facility] Ht (in): 62 Wt (lb): 220 Ordering Physician: Natividad Fraser Attending/Referring Phys: [id number], [employer] Procedure CPT: Indications: LVF Cardiac Hx: limited study Technical Quality: Contrast 1: Total Dose (mL): Contrast 2: Total Dose (mL): MEASUREMENTS (Male / Female) Normal Values 2D ECHO LV Diastolic Volume MOD 4C 78.5 cm??? LV Systolic Volume MOD 4C 40.9 cm??? LV Ejection Fraction MOD 4C 47.9 % LV Diastolic Length 4C 8.3 cm LV Systolic Length 4C 7.8 cm LV Diastolic Volume MOD 2C 77.4 cm??? LV Systolic Volume MOD 2C 38.7 cm??? LV Ejection Fraction MOD 2C 50.0 % LV Diastolic Length 2C 8.3 cm LV Systolic Length 2C 7.0 cm DOPPLER TR Peak Velocity 196.5 cm/s TR Peak Gradient 15.5 mmHg Right Ventricular Systolic Press 20.5 mmHg FINDINGS Left Ventricle Left ventricular ejection fraction is estimated at 40-45 %. Apical severe hypokinesis to akinesis Right Ventricle Right ventricular systolic pressure within normal limits. Right Atrium Left Atrium Mitral Valve Aortic Valve Tricuspid Valve Pulmonic Valve Pericardium No pericardial or pleural effusion. Aorta CONCLUSIONS Limited echo. Mildly impaired left ventricular systolic function with segmental wall motion abnormality consistent with CAD Previewed by: Dr. Julio César Lawson MD (Electronically Signed) Final Date: 17 October 2024 17:38
[2024-10-17] MEDS: METOPROLOL TARTRATE 12.5 MG TAB PO SCH (21:03)
--- NOTE | 2024-10-17 23:28 | OP ---
OPERATIVE REPORT DATE OF SERVICE : 10/17/2024 PREOPERATIVE DIAGNOSIS: Wound on the left calf area, measurement is 5 x 3 cm. POSTOPERATIVE DIAGNOSIS: Wound on the left calf area, measurement is 5 x 3 x 1 cm. The left ankle was prepped and draped in the usual sterile manner. 1% lidocaine was infiltrated. Using a knife, we excised the necrotic tissue down to subcutaneous tissue and fat. The necrotic tissue and fat was sent for deep culture. There were some bleeding points, which was electrocoagulated. The patient also had a wound on the left outer aspect of the ankle. The measurement is 3 x 3, post debridement measurement is 3 x 3 x 0.5 cm. Left ankle was prepped and 1% lidocaine plain infiltrated. Using knife, we excised the necrotic tissue down to subcutaneous tissue and fat. No active bleeding was noted. All the necrotic tissue was removed down to subcutaneous tissue and fat. We placed a Medihoney gel to the wound involving the left calf and left ankle and pressure dressing was applied. The patient tolerated the procedure well. Deep culture was sent for culture and sensitivity. Follow with you. MMODL / IJN: [id number] / FERNANDO
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
[2024-10-18 08:01] LABS: Basophils % (A) 0 %; Eosinophils % (A) 0 %; HCT 31.9 % (34.0-46.0); HGB 10.1 gm/dL (11.4-16.0); Hypochromasia Moderate; Lymphocytes # (A) 1.3 k/uL (1.0-4.8); Lymphocytes % (A) 3 %; MCH 28.9 pg (25.0-35.0); MCHC 31.7 g/dL (31.0-37.0); MCV 90.9 fL (80.0-100.0); Mean Platelet Volume 8.1; Monocytes # (A) 0.9 k/uL (0-1.0); Monocytes % (A) 2 %; Neutrophils # (A) 36.4 k/uL (1.3-7.7); Neutrophils % (A) 94 %; Platelet Count 299 k/uL (150-450); RBC 3.51 m/uL (3.80-5.40); RDW 15.2 % (11.5-15.5); WBC 38.8 k/uL (3.8-10.6)
[2024-10-18 08:12] LABS: ALT 36 U/L (4-34); AST 103 U/L (14-36); African American GFR (CKD) 51 (>60 ml/min/1.73 sqM); Albumin 2.2 g/dL (3.5-5.0); Alkaline Phosphatase 139 U/L (38-126); Anion Gap 4 mmol/L; Blood Urea Nitrogen 15 mg/dL (7-17); Calcium 7.7 mg/dL (8.4-10.2); Carbon Dioxide 26 mmol/L (22-30); Chloride 110 mmol/L (98-107); Glucose 131 mg/dL (74-99); Non-African American GFR(CKD) 44 (>60 ml/min/1.73 sqM); Sodium 140 mmol/L (137-145); Total Protein 4.4 g/dL (6.3-8.2)
[2024-10-18 08:21] LABS: Potassium 2.5 mmol/L (3.5-5.1)
[2024-10-18] MEDS: ACETAMINOPHEN TAB 325 MG TAB PO PRN (09:14)
[2024-10-18] MEDS ORDERED: Potassium Replacement Protocol 1 EACH MISC MISCELLANE PRN ×2 (10:43→22:37)
[2024-10-18] MEDS: POTASSIUM CHLORIDE ER 20 MEQ TAB.ER PO ONE (12:34)
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
[2024-10-18] MEDS: COLLAGENASE 250 UNIT/GM OINTMENT 30 GM TUBE TOPICAL SCH (14:30)
--- NOTE | 2024-10-18 14:53 | P.PN ---
Subjective Progress Note Date: 10/17/24 Principal diagnosis: Reason for follow-up is leukocytosis UTI lower extremity wound cellulitis Patient is a 66-year-old female with a past medical history significant for CVA TIA history of multiple sclerosis with bilateral lower extremity weakness has been brought to the hospital for evaluation of mental status changes and weakness patient did have elevated white count prompted this consultation. On today's evaluation that is 10/17/2024,the patient has been afebrile she is breathing comfortably on room air no chest pain shortness with or cough no abdominal pain no worsening pain to lower extremity wounds. Patient white count is up to 31.7, creatinine is 1.30 Objective - Vital Signs Vital signs: Vital Signs Temp 98.2 F 10/17/24 11:03 Pulse 112 H 10/17/24 11:03 Resp 14 10/17/24 11:03 BP 84/53 10/17/24 11:03 Pulse Ox 92 L 10/17/24 11:03 FiO2 Intake & Output 10/16/24 10/17/24 10/17/24 18:59 06:59 18:59 Intake Total 118 Output Total 0 Balance 0 118 Weight 99.79 kg 99.79 kg Intake: Oral 118 Output: Urine 0 Other: Voiding Method External Catheter External Catheter External Catheter # Voids 1 - Exam GENERAL DESCRIPTION: An elderly female lying in bed in no distress RESPIRATORY SYSTEM: Unlabored breathing , decreased breath sounds at bases HEART: S1 S2 regular rate and rhythm , ABDOMEN: Soft , no tenderness EXTREMITIES: Left lower extremity wounds x 2 did have significant obstructive surrounding redness - Labs CBC & Chem 7: 10/18/24 07:22 10/18/24 07:22 Labs: Abnormal Lab Results - Last 24 Hours (Table) 10/17/24 10/17/24 Range/Units 06:24 06:24 WBC 31.7 H (3.8-10.6) k/uL Hgb 10.5 L (11.4-16.0) gm/dL MCHC 29.8 L (31.0-37.0) g/dL Neutrophils # (Manual) 29.40 H (1.3-7.7) k/uL Potassium 3.4 L (3.5-5.1) mmol/L Creatinine 1.30 H (0.52-1.04) mg/dL Glucose 130 H (74-99) mg/dL Calcium 8.0 L (8.4-10.2) mg/dL Total Protein 4.6 L (6.3-8.2) g/dL Albumin 2.4 L (3.5-5.0) g/dL Microbiology - Last 24 Hours (Table) 10/15/24 23:04 Urine Culture - Preliminary Urine,Clean Catch Gram Neg Bacilli 10/15/24 23:11 Blood Culture - Preliminary Blood Assessment and Plan (1) Sepsis Current Visit: Yes Status: Acute Code(s): A41.9 - SEPSIS, UNSPECIFIED ORGANISM SNOMED Code(s): 23705364 (2) Bilateral leg ulcer Current Visit: Yes Status: Acute Code(s): L97.919 - NON-PRS CHRONIC ULC UNSP PRT OF R LOW LEG W UNSP SEVERITY; L97.929 - NON-PRS CHRONIC ULC UNSP PRT OF L LOW LEG W UNSP SEVERITY SNOMED Code(s): 48387802 (3) Bilateral lower leg cellulitis Current Visit: Yes Status: Acute Code(s): L03.116 - CELLULITIS OF LEFT LOWER LIMB; L03.115 - CELLULITIS OF RIGHT LOWER LIMB SNOMED Code(s): 320017337 (4) Penicillin allergy Current Visit: Yes Status: Acute Code(s): Z88.0 - ALLERGY STATUS TO PENICILLIN SNOMED Code(s): 60536985 Plan: 1-Patient presenting to the hospital with SIRS/sepsis in this patient who did have tachycardia elevated white count source likely bilateral lower extremity wound and cellulitis more marked to the left leg patient did have a positive UA urinary source not entirely excluded however is very hard to get any history from the patient regarding any urinary symptoms, however the patient did have mental status changes and elevated white count that should be enough for diagnosis of symptomatic UTI 2-penicillin allergies that would limit the number of antibiotics safe to use 3-patient will benefit from surgical debridement of wound especially to the left leg and deep culture for which vascular surgery has been consulted 4-patient to continue with vancomycin pharmacy to dose target trough of 15 and Rocephin while waiting for the culture to finalize. Family at bedside question answered Dictation was produced using [employer] dictation software. please excuse any grammatical, word or spelling errors.
--- NOTE | 2024-10-18 14:56 | P.PN ---
Subjective Progress Note Date: 10/18/24 Principal diagnosis: Reason for follow-up is leukocytosis UTI lower extremity wound cellulitis Patient is a 66-year-old female with a past medical history significant for CVA TIA history of multiple sclerosis with bilateral lower extremity weakness has been brought to the hospital for evaluation of mental status changes and weakness patient did have elevated white count prompted this consultation. On today's evaluation that is 10/18/2024,the patient remains to be afebrile, patient is on room air not requiring supplemental oxygen and denies any shortness of breath no chest pain or cough.Patient denies having any nausea or vomiting, no abdominal pain has been complaining of some pain to lower extremity wound post debridement yesterday but no worsening pain. Patient white count is up to 38.8, creatinine is 1.28 urine is growing Pseudomonas aeruginosa local cultures currently pending Objective - Vital Signs Vital signs: Vital Signs Temp 97.8 F 10/18/24 11:41 Pulse 91 10/18/24 11:41 Resp 17 10/18/24 11:41 BP 73/53 10/18/24 11:41 Pulse Ox 94 L 10/18/24 11:41 FiO2 Intake & Output 10/17/24 10/18/24 10/18/24 18:59 06:59 18:59 Intake Total 118 600 Output Total 400 Balance 118 200 Weight 99.79 kg Intake: IV 600 Sodium Chloride 0.9% 1, 600 000 ml @ 75 mls/hr IV . [id number] [facility] Rx#:[id number] Oral 118 Output: Urine 400 Other: Voiding Method External Catheter External Catheter # Voids 2 1 - Exam GENERAL DESCRIPTION: An elderly female lying in bed in no distress RESPIRATORY SYSTEM: Unlabored breathing , decreased breath sounds at bases HEART: S1 S2 regular rate and rhythm , ABDOMEN: Soft , no tenderness EXTREMITIES: Lower extremity wound currently dressed - Labs CBC & Chem 7: 10/18/24 07:22 10/18/24 07:22 Labs: Abnormal Lab Results - Last 24 Hours (Table) 10/18/24 10/18/24 Range/Units 07:22 07:22 WBC 38.8 H (3.8-10.6) k/uL RBC 3.51 L (3.80-5.40) m/uL Hgb 10.1 L (11.4-16.0) gm/dL Hct 31.9 L (34.0-46.0) % Neutrophils # 36.4 H (1.3-7.7) k/uL Potassium 2.5 L* (3.5-5.1) mmol/L Chloride 110 H (98-107) mmol/L Creatinine 1.28 H (0.52-1.04) mg/dL Glucose 131 H (74-99) mg/dL Calcium 7.7 L (8.4-10.2) mg/dL AST 103 H (14-36) U/L ALT 36 H (4-34) U/L Alkaline Phosphatase 139 H (38-126) U/L Total Protein 4.4 L (6.3-8.2) g/dL Albumin 2.2 L (3.5-5.0) g/dL Microbiology - Last 24 Hours (Table) 10/15/24 23:04 Urine Culture - Final Urine,Clean Catch Pseudomonas aeruginosa 10/17/24 16:20 Gram Stain - Preliminary Ankle - Left 10/17/24 16:20 Gram Stain - Preliminary Leg - Left 10/15/24 23:11 Blood Culture - Preliminary Blood Assessment and Plan (1) Sepsis Current Visit: Yes Status: Acute Code(s): A41.9 - SEPSIS, UNSPECIFIED ORGANISM SNOMED Code(s): 00170147 (2) Bilateral leg ulcer Current Visit: Yes Status: Acute Code(s): L97.919 - NON-PRS CHRONIC ULC UNSP PRT OF R LOW LEG W UNSP SEVERITY; L97.929 - NON-PRS CHRONIC ULC UNSP PRT OF L LOW LEG W UNSP SEVERITY SNOMED Code(s): 03395528 (3) Bilateral lower leg cellulitis Current Visit: Yes Status: Acute Code(s): L03.116 - CELLULITIS OF LEFT LOWER LIMB; L03.115 - CELLULITIS OF RIGHT LOWER LIMB SNOMED Code(s): 746372305 (4) Penicillin allergy Current Visit: Yes Status: Acute Code(s): Z88.0 - ALLERGY STATUS TO PENICILLIN SNOMED Code(s): 76083224 (5) Pseudomonas urinary tract infection Current Visit: Yes Status: Acute Code(s): N39.0 - URINARY TRACT INFECTION, SITE NOT SPECIFIED; B96.5 - PSEUDOMONAS (MALLEI) CAUSING DISEASES CLASSD ELSWHR SNOMED Code(s): 343108733518952 Plan: 1-Patient presenting to the hospital with SIRS/sepsis in this patient who did have tachycardia elevated white count source likely bilateral lower extremity wound and cellulitis more marked to the left leg patient did have a positive UA urinary source not entirely excluded however is very hard to get any history from the patient regarding any urinary symptoms, however the patient did have mental status changes and elevated white count that should be enough for diagnosis of symptomatic UTI 2-penicillin allergies that would limit the number of antibiotics safe to use 3-patient is status post surgical debridement of wound especially to the left leg and deep culture which are currently pending 4-patient urine is growing Pseudomonas we will discontinue Rocephin start the patient cefepime for now continue the vancomycin while waiting for the lower extremity wound culture to be finalized Family at bedside question answered Dictation was produced using [employer] dictation software. please excuse any grammatical, word or spelling errors. Time with Patient: Less than 30
--- NOTE | 2024-10-18 15:05 | CT ---
EXAMINATION TYPE: CT chest angio for PE DATE OF EXAM: 10/18/2024 COMPARISON: None CLINICAL INDICATION: Female, 64 years old with history of Leukocytosis, dyspnea; PHH, ABD PAIN/DORA, S OB or PAIN TECHNIQUE: Ct angiogram of the chest performed with with IV Contrast, patient injected with 80 ML mL of Isovue 3 70. MIP images are created and reviewed. CT DLP: COMBINED 2002.[address] CTDI: mGy Automated exposure control for dose reduction was used. FINDINGS: There are small bibasilar pleural effusions and atelectasis. There are moderate emphysematous changes . The great vessels chest are normal. There is no filling defect within the pulmonary arteries to sugge st pulmonary embolism. The heart size is normal. There is no mediastinal, hilar or axillary adenopathy. Limited scanning through the upper abdomen reveals no gross abnormality There are mild superior endplate compression fractures of the T8 and T11 vertebral segments. IMPRESSION: 1. Mild bibasal atelectasis and small effusions. 2. Moderate emphysematous changes. 3. No evidence of pulmonary embolism. 4. Mild superior endplate compression fractures of T8 and T11. [facility], , 10/18/2024 3:03 PM
--- NOTE | 2024-10-18 15:13 | CT ---
EXAMINATION TYPE: CT abdomen pelvis w con DATE OF EXAM: 10/18/2024 COMPARISON: None CLINICAL INDICATION: Female, 64 years old with history of Abdominal pain; PHH, ABD PAIN/DORA TECHNIQUE: Performed without Oral Contrast and with IV Contrast, patient injected with 80 ML mL of Isovue 370. CT DLP: COMBINED 2002.[address] CTDI: mGy Automated exposure control for dose reduction was used. FINDINGS: There is mild basilar atelectasis and small effusions. The gallbladder is normal without distention, wall thickening, pericholecystic fluid or gallstones. T here is no biliary ductal dilatation. There is no focal mass or organomegaly involving the liver, pancreas, spleen or adrenal glands. There is no solid renal mass or hydronephrosis and there is homogeneous contrast enhancement of the r enal parenchyma. The caliber the abdominal aorta is normal is no retroperitoneal adenopathy or hemorr jennifer. The bowel loops are normal in caliber and there is no evidence of dilatation or obstruction. No infla mmatory changes are identified in the bowel wall or mesentery. There is no free intraperitoneal air or fluid. No pelvic mass, free fluid, abscess or adenopathy. There are no focal osseous lesions. In the soft tissues of the right pelvis there is a 10.1 x 12.5 cm lipomatous mass which was seen on t he prior CTA of the abdomen and pelvis dated 10/18/2023. There has been interval development of strand -like density within it which could reflect edema but the possibility of sarcomatous degeneration can not be excluded and biopsy or short-term follow-up is recommended. IMPRESSION: 1. Small bilateral pleural effusions and bibasilar atelectasis. 2. Large fat density mass in the soft tissues of the right pelvis which could represent lipoma but gi sangeeta the presence of new strand-like density within it; sarcomatous degeneration cannot be excluded. F ollow-up or biopsy is recommended. . [facility], , 10/18/2024 3:11 PM
[2024-10-18] MEDS: CEFEPIME 2 GM in SODIUM CHLORIDE 0.9% 100 ML IVPB SCH (17:00)
[2024-10-18 19:26] LABS: Basophils # (A) 0.1 k/uL (0-0.2); Basophils % (A) 0 %; Eosinophils # (A) 0.1 k/uL (0-0.7); Eosinophils % (A) 0 %; HCT 33.1 % (34.0-46.0); HGB 10.2 gm/dL (11.4-16.0); Hypochromasia Marked; Lymphocytes # (A) 2.1 k/uL (1.0-4.8); Lymphocytes % (A) 6 %; MCH 28.5 pg (25.0-35.0); MCV 92.1 fL (80.0-100.0); Mean Platelet Volume 8.2; Monocytes # (A) 0.8 k/uL (0-1.0); Monocytes % (A) 2 %; Neutrophils # (A) 34.8 k/uL (1.3-7.7); Neutrophils % (A) 91 %; Platelet Count 296 k/uL (150-450); RBC 3.59 m/uL (3.80-5.40); RDW 15.1 % (11.5-15.5); WBC 38.1 k/uL (3.8-10.6)
--- NOTE | 2024-10-18 19:52 | PN ---
PROGRESS NOTE A 64-year-old white female patient has a history of chronic wound right leg and also the patient has a left leg wound at the ankle and left lower leg. The patient had a contracture of the knee. The patient had a debridement done yesterday. Today we have changed the dressing. We used Santyl cream today and dressing should be changed on a daily basis with Santyl cream. The patient is under care of Infectious Disease for IV antibiotic and management. MMODL / IJN: [id number] /
[2024-10-19] MEDS: POTASSIUM CHLORIDE ER 20 MEQ TAB.ER PO ONE (00:24)
[2024-10-19 07:39] LABS: African American GFR (CKD) 48 (>60 ml/min/1.73 sqM); Anion Gap 10 mmol/L; Blood Urea Nitrogen 23 mg/dL (7-17); Calcium 7.7 mg/dL (8.4-10.2); Carbon Dioxide 19 mmol/L (22-30); Chloride 111 mmol/L (98-107); Glucose 112 mg/dL (74-99); Non-African American GFR(CKD) 41 (>60 ml/min/1.73 sqM); Potassium 2.9 mmol/L (3.5-5.1); Sodium 140 mmol/L (137-145)
[2024-10-19] MEDS: POTASSIUM CHLORIDE ER 20 MEQ TAB.ER PO SCH (08:47)
--- NOTE | 2024-10-19 15:23 | P.PN ---
Subjective Progress Note Date: 10/19/24 Principal diagnosis: Reason for follow-up is leukocytosis UTI lower extremity wound cellulitis Patient is a 66-year-old female with a past medical history significant for CVA TIA history of multiple sclerosis with bilateral lower extremity weakness has been brought to the hospital for evaluation of mental status changes and weakness patient did have elevated white count prompted this consultation. On today's evaluation that is 10/19/2024, the patient continues to be afebrile, the patient is on room air and breathing comfortably, the Pt denies having any chest pain or cough, the patient denies having any abdominal pain no vomiting or any diarrhea has been reported by the nursing staff patient denies any worsening pain to the lower extremity wound area. No CBC was done today patient creatinine is 1.35 leg culture currently growing Pseudomonas Enterococcus faecalis and staph epi Objective - Vital Signs Vital signs: Vital Signs Temp 98 F 10/19/24 11:35 Pulse 102 H 10/19/24 11:35 Resp 20 10/19/24 11:35 BP 96/65 10/19/24 11:35 Pulse Ox 95 10/19/24 11:35 FiO2 Intake & Output 10/18/24 10/19/24 10/19/24 18:59 06:59 18:59 Intake Total 1072 1200 780 Output Total 850 500 Balance 1072 350 280 Intake: IV 1200 Cefepime 2 gm In Sodium 100 Chloride 0.9% 100 ml @ 25 mls/hr IVPB Q12H [facility] Rx# :[id number] Sodium Chloride 0.9% 1, 600 000 ml @ 75 mls/hr IV . [id number] [facility] Rx#:[id number] Vancomycin 1,500 mg In 500 Sodium Chloride 0.9% 500 ml 500 ml @ 167 mls/hr IVPB Q24H [facility] Rx#: [id number] Oral 1072 780 Output: Urine 850 500 Other: Voiding Method External Catheter External Catheter External Catheter - Exam GENERAL DESCRIPTION: An elderly female lying in bed in no distress RESPIRATORY SYSTEM: Unlabored breathing , decreased breath sounds at bases HEART: S1 S2 regular rate and rhythm , ABDOMEN: Soft , no tenderness EXTREMITIES: Lower extremity wound currently dressed - Labs CBC & Chem 7: 10/18/24 19:08 10/19/24 06:52 Labs: Abnormal Lab Results - Last 24 Hours (Table) 01/10/18/24 10/19/24 Range/Units 19:08 21:57 06:52 WBC 38.1 H (3.8-10.6) k/uL RBC 3.59 L (3.80-5.40) m/uL Hgb 10.2 L (11.4-16.0) gm/dL Hct 33.1 L (34.0-46.0) % Neutrophils # 34.8 H (1.3-7.7) k/uL Potassium 2.5 L* 2.9 L (3.5-5.1) mmol/L Chloride 111 H (98-107) mmol/L Carbon Dioxide 19 L (22-30) mmol/L BUN 23 H (7-17) mg/dL Creatinine 1.35 H (0.52-1.04) mg/dL Glucose 112 H (74-99) mg/dL Calcium 7.7 L (8.4-10.2) mg/dL Microbiology - Last 24 Hours (Table) 10/17/24 16:20 Gram Stain - Preliminary Ankle - Left Tissue Culture - Preliminary Pseudomonas aeruginosa Enterococcus hirae (grp d) Staphylococcus epidermidis 10/17/24 16:20 Gram Stain - Preliminary Leg - Left Tissue Culture - Preliminary Pseudomonas aeruginosa Enterococcus faecalis Staphylococcus epidermidis 10/15/24 23:11 Blood Culture - Preliminary Blood 10/15/24 23:04 Urine Culture - Final Urine,Clean Catch Pseudomonas aeruginosa Assessment and Plan (1) Sepsis Current Visit: Yes Status: Acute Code(s): A41.9 - SEPSIS, UNSPECIFIED ORGANISM SNOMED Code(s): 79574194 (2) Bilateral leg ulcer Current Visit: Yes Status: Acute Code(s): L97.919 - NON-PRS CHRONIC ULC UNSP PRT OF R LOW LEG W UNSP SEVERITY; L97.929 - NON-PRS CHRONIC ULC UNSP PRT OF L LOW LEG W UNSP SEVERITY SNOMED Code(s): 92743985 (3) Bilateral lower leg cellulitis Current Visit: Yes Status: Acute Code(s): L03.116 - CELLULITIS OF LEFT LOWER LIMB; L03.115 - CELLULITIS OF RIGHT LOWER LIMB SNOMED Code(s): 320092782 (4) Penicillin allergy Current Visit: Yes Status: Acute Code(s): Z88.0 - ALLERGY STATUS TO PENICILLIN SNOMED Code(s): 24692839 (5) Pseudomonas urinary tract infection Current Visit: Yes Status: Acute Code(s): N39.0 - URINARY TRACT INFECTION, SITE NOT SPECIFIED; B96.5 - PSEUDOMONAS (MALLEI) CAUSING DISEASES CLASSD ELSWHR SNOMED Code(s): 350661970316822 Plan: 1-Patient presenting to the hospital with SIRS/sepsis in this patient who did have tachycardia elevated white count source likely bilateral lower extremity wound and cellulitis more marked to the left leg patient did have a positive UA urinary source not entirely excluded however is very hard to get any history from the patient regarding any urinary symptoms, however the patient did have mental status changes and elevated white count that should be enough for diagnosis of symptomatic UTI 2-penicillin allergies that would limit the number of antibiotics safe to use 3-patient is status post surgical debridement of wound especially to the left leg and deep culture which are currently growing Pseudomonas Enterococcus and staph epi 4-patient urine is growing Pseudomonas 5patient is currently covered with cefepime and vancomycin to continue while waiting for the culture to finalize and monitor her kidney function closely creatinine is currently 1.35 Family at bedside question answered Dictation was produced using [employer] dictation software. please excuse any grammatical, word or spelling errors. Time with Patient: Less than 30
[2024-10-19 15:44] VITALS: TEMP 98.3
[2024-10-19] MEDS ORDERED: IPRATROPIUM-ALBUTEROL 3 ML NEB INHALATION PRN (18:17)
[2024-10-19] MEDS: IPRATROPIUM-ALBUTEROL 3 ML NEB INHALATION SCH (18:29)
[2024-10-19] MEDS ORDERED: FUROSEMIDE 10 MG/ML 4 ML VIAL IV STA (18:50)
[2024-10-19 18:52] LABS: Glucose,Whole Blood 188 mg/dL (70-110)
[2024-10-19] MEDS ORDERED: ETOMIDATE 2 MG/ML 10 ML VIAL ONE (19:10)
[2024-10-19] MEDS ORDERED: SUCCINYLCHOLINE CHLORIDE 200 MG/10 ML VIAL IV ONE (19:10)
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
[2024-10-19] MEDS ORDERED: NOREPINEPHRINE 4 MG in SODIUM CHLORIDE 0.9% 250 ML IV SCH (19:45)
--- NOTE | 2024-10-19 19:51 | XR ---
EXAMINATION TYPE: XR chest 1V portable DATE OF EXAM: 10/19/2024 7:30 PM COMPARISON: 10/19/2024 CLINICAL INDICATION: Female, 64 years old with history of Tube placement; [facility] TECHNIQUE: XR chest 1V portable Frontal view of the chest. FINDINGS: Lungs/Pleura: There is no evidence of pleural effusion, focal consolidation, or pneumothorax. Pulmonary vascularity: Unremarkable. Heart/mediastinum: Cardiomediastinal silhouette is unremarkable. Musculoskeletal: No acute osseous pathology. Other findings: None Lines/Tubes: Endotracheal tube with distal tip 4.5 cm above the lit. Nasogastric tube with its distal tip and side-port projecting under the diaphragm. IMPRESSION: Support tubes in appropriate position. Multifocal airspace opacities concerning for pneumonia. [facility], , 10/19/2024 7:49 PM
[2024-10-19] MEDS ORDERED: EPINEPHrine 10 ML SYRINGE (0.1 MG/ML) ONE (20:08)
[2024-10-19] MEDS ORDERED: CALCIUM CHLORIDE 100 MG/ML 10 ML SYRINGE ONE (20:08)
[2024-10-19] MEDS ORDERED: SODIUM BICARB 8.4% 50 ML SYR (1 MEQ/ML) ONE (20:08)
[2024-10-19 20:11] LABS: Glucose,Whole Blood 229 mg/dL (70-110)
[2024-10-19 20:24] LABS: ALT 57 U/L (4-34); AST 146 U/L (14-36); African American GFR (CKD) 46 (>60 ml/min/1.73 sqM); Albumin 2.7 g/dL (3.5-5.0); Alkaline Phosphatase 172 U/L (38-126); Anion Gap 16 mmol/L; Blood Urea Nitrogen 27 mg/dL (7-17); Calcium 7.6 mg/dL (8.4-10.2); Carbon Dioxide 14 mmol/L (22-30); Chloride 108 mmol/L (98-107); Glucose 210 mg/dL (74-99); Non-African American GFR(CKD) 40 (>60 ml/min/1.73 sqM); Potassium 4.5 mmol/L (3.5-5.1); Sodium 138 mmol/L (137-145); Total Bilirubin 0.7 mg/dL (0.2-1.3); Total Protein 5.4 g/dL (6.3-8.2)
[2024-10-19 20:28] LABS: RBC 4.31 m/uL (3.80-5.40); WBC 30.2 k/uL (3.8-10.6)
[2024-10-19 20:29] LABS: Basophils # (A) 0.1 k/uL (0-0.2); Basophils % (A) 0 %; Eosinophils # (A) 0.2 k/uL (0-0.7); Eosinophils % (A) 1 %; HGB 12.5 gm/dL (11.4-16.0); Hypochromasia Marked; Lymphocytes # (A) 2.4 k/uL (1.0-4.8); Lymphocytes % (A) 8 %; MCH 28.9 pg (25.0-35.0); MCHC 30.4 g/dL (31.0-37.0); MCV 95.2 fL (80.0-100.0); Mean Platelet Volume 9.2; Monocytes # (A) 0.6 k/uL (0-1.0); Monocytes % (A) 2 %; Neutrophils # (A) 26.9 k/uL (1.3-7.7); Neutrophils % (A) 89 %; Platelet Count 372 k/uL (150-450); RDW 15.3 % (11.5-15.5)
[2024-10-19 20:32] LABS: NT-Pro-B-Type Natriuretic Pept 21500 pg/mL
[2024-10-19] MEDS: VASOPRESSIN 60 UNIT in SODIUM CHLORIDE 0.9% 150 ML IV SCH (20:33)
[2024-10-19] MEDS ORDERED: EPINEPHrine 4 MG in DEXTROSE 5% IN WATER 250 ML IV SCH (20:45)
[2024-10-19] MEDS ORDERED: NOREPINEPHRINE 32 MG in SODIUM CHLORIDE 0.9% 218 ML IV SCH (20:45)
[2024-10-19] MEDS ORDERED: CHLORHEXIDINE GLUCONATE 15 ML CUP MUCOUS MEM SCH (21:00)
--- NOTE | 2024-10-19 21:16 | XR ---
EXAMINATION TYPE: XR chest 1V portable DATE OF EXAM: 10/19/2024 8:53 PM COMPARISON: Chest radiographs from same day CLINICAL INDICATION: Female, 64 years old with history of line placement; [facility] TECHNIQUE: XR chest 1V portable Frontal view of the chest. FINDINGS: Lungs/Pleura: There is no evidence of pleural effusion, focal consolidation, or pneumothorax. Pulmonary vascularity: Unremarkable. Heart/mediastinum: Cardiomediastinal silhouette is unremarkable. Musculoskeletal: No acute osseous pathology. Other findings: None Lines/Tubes: Endotracheal tube with distal tip 4.7 cm above the lit. Nasogastric tube with its distal tip and side-port projecting under the diaphragm and projecting over the gastric lumen. Right internal jugular central venous catheter with distal tip at the superior vena cava. IMPRESSION: 1. Similar multifocal airspace opacities. 2. Appropriately positioned support line and tubes. [facility], , 10/19/2024 9:14 PM
[2024-10-19 22:42] VITALS: BP 102/81
[2024-10-19 22:43] VITALS: PULSE 0; RESP 0
[2024-10-20] MEDS ORDERED: VANCOMYCIN TROUGH DUE 1 EACH MISC MISCELLANE ONE (00:30)
--- NOTE | 2024-10-20 04:25 | P.EN ---
CODE BLUE note Arrived at the scene prior to code activation as was informed that the patient may need additional IV access. CODE BLUE was activated at 2007. the chart was reviewed and the case was discussed in detail with the patient's RN. The patient was admitted for UTI sepsis with altered mental status suspected secondary to encephalopathy with lactic acidosis. The patient's breathing had worsened and she was subsequently intubated and moved to the medical ICU where the CODE BLUE was activated for PEA. ACLS protocol was followed and patient was given IV epinephrine with high-quality CPR. ROSC was initially achieved and the patient again developed PEA. She subsequently was noted to be in V. tach for which she was cardioverted with 120 J. The patient was also given IV sodium bicarbonate and calcium chloride. A central line and A-line were placed by anesthesiology in the ICU. The patient eventually developed IVR and asystole with CPR halted at 2055. The patient's family was at the bedside who were notified. Please refer to the code sheet for further details. The primary team and supervisor audit clerks was notified by the RN. Time spent providing critical care for this patient: 50 minutes
--- NOTE | 2024-10-21 09:28 | P.ANPRN ---
Procedure Note - Anesthesia - Invasive Line Right Central Line Time Out Performed: Yes (2010) Date of Procedure: 10/21/24 Time of Procedure: 20:12 Location of Patient: Phase I (ICU) Preparation: Sterile Prep, Sterile Dressing Central Line Location: Internal Jugular (right ij) Ultrasound Used: Yes Purpose - Visualization and Identification of Vasculature: Yes Needle Guage: 18-gauge Angiocath Image Stored and Saved: No (Emergently done unable to say picture) Narrative: Invasive line placement per sterile protocol utilized. Anesthesia note Procedure: Right internal jugular central venous catheter insertion: Right IJ triple-lumen catheter Sterile protocol followed. Right neck prepped. Ultrasound used. Lidocaine 1% used. Using ultrasound local anesthetic was instilled site over right Internal Jugular vein. Angiocath was used to gain access via ultrasound. Once free flow non-pulsatile blood flow was confirmed, 12 inch extension tubing was then placed on Angiocath. Once central venous pressure was confirmed, J-wire was then placed through Angiocath. Angiocath was then withdrawn. Local was instilled at J-wire site. Small skin sofy was then made with provided sterile scalpel. Right IJ triple-lumen catheter was then inserted over the wire while maintaining control of wire at all times. Uneventful insertion with dilation. Free flow nonpulsatile blood flow through other hooked up to IV tubing. Secured with suture. Dressings applied. Drapes Removed. Attempts x1.
--- NOTE | 2024-10-21 09:30 | P.ANPRN ---
Procedure Note - Anesthesia - Invasive Line Right Arterial Line Time Out Performed: Yes (2021) Date of Procedure: 10/21/24 Time of Procedure: 20:34 Location of Patient: Phase I (ICU) Preparation: Sterile Prep, Sterile Dressing Arterial Line Location: Briachial (Right) Ultrasound Used: Yes Purpose - Visualization and Identification of Vasculature: Yes Needle Guage: 20-gauge Image Stored and Saved: Yes (Performed in ICU unable to print picture) Narrative: Invasive line placement per sterile protocol utilized. Performed emergently
== END 2024-10-19 20:56 | disposition expired | DRG 853 ==
LOC: EC 21:35 → 3SCARD 23:43 → 2SICU 10-19 19:03
PROVIDERS: ADMIT Hospitalist; ATTEND Hospitalist
PROC: 0JBP0ZZ Excision of Left Lower Leg Subcutaneous Tissue and Fascia, Open Approach (ICD-10-PCS; 2024-10-17)
PROC: 0JBR0ZZ Excision of Left Foot Subcutaneous Tissue and Fascia, Open Approach (ICD-10-PCS; 2024-10-17)
PROC: 5A1935Z Respiratory Ventilation, Less than 24 Consecutive Hours (ICD-10-PCS; principal; 2024-10-19)
PROC: 3E033XZ Introduction of Vasopressor into Peripheral Vein, Percutaneous Approach (ICD-10-PCS; 2024-10-19)
PROC: 5A12012 Performance of Cardiac Output, Single, Manual (ICD-10-PCS; 2024-10-19)
PROC: 5A2204Z Restoration of Cardiac Rhythm, Single (ICD-10-PCS; 2024-10-19)
PROC: 03HY32Z Insertion of Monitoring Device into Upper Artery, Percutaneous Approach (ICD-10-PCS; 2024-10-19)
PROC: 4A133B1 Monitoring of Arterial Pressure, Peripheral, Percutaneous Approach (ICD-10-PCS; 2024-10-19)
PROC: 4A133J1 Monitoring of Arterial Pulse, Peripheral, Percutaneous Approach (ICD-10-PCS; 2024-10-19)
PROC: 02HV33Z Insertion of Infusion Device into Superior Vena Cava, Percutaneous Approach (ICD-10-PCS; 2024-10-19)
PROC: 0BH17EZ Insertion of Endotracheal Airway into Trachea, Via Natural or Artificial Opening (ICD-10-PCS; 2024-10-19)
DX: A41.9 Sepsis, unspecified organism (principal); G93.41 Metabolic encephalopathy; I21.A1 Myocardial infarction type 2; E87.20 Acidosis, unspecified; I96 Gangrene, not elsewhere classified; F05 Delirium due to known physiological condition; I46.9 Cardiac arrest, cause unspecified; Z68.41 Body mass index [BMI] 40.0-44.9, adult; I65.22 Occlusion and stenosis of left carotid artery; N39.0 Urinary tract infection, site not specified; L97.929 Non-pressure chronic ulcer of unspecified part of left lower leg with unspecified severity; L97.919 Non-pressure chronic ulcer of unspecified part of right lower leg with unspecified severity; I47.20 Ventricular tachycardia, unspecified; L03.115 Cellulitis of right lower limb; L03.116 Cellulitis of left lower limb; G35 Multiple sclerosis; E66.01 Morbid (severe) obesity due to excess calories; B96.5 Pseudomonas (aeruginosa) (mallei) (pseudomallei) as the cause of diseases classified elsewhere; M24.569 Contracture, unspecified knee; Z79.01 Long term (current) use of anticoagulants; Z79.82 Long term (current) use of aspirin; Z88.6 Allergy status to analgesic agent; Z88.0 Allergy status to penicillin; Z87.891 Personal history of nicotine dependence; I25.2 Old myocardial infarction; Z99.3 Dependence on wheelchair; Z86.73 Personal history of transient ischemic attack (TIA), and cerebral infarction without residual deficits
CPT/HCPCS: 36415; 51701; 70450; 71045; 71275; 74177; 80048; 80053; 81001; 82803; 83605; 83880; 84132; 84484; 85025; 85610; 85730; 87040; 87070; 87077; 87086; 87186; 87205; 87636; 92950; 93005; 93308; 94002; 94640; 94660; 94760; 96361; 96365; 96366; 96367; 99285